=== PATIENT | male | born 1960 | race Caucasian/White ===

== ENCOUNTER 2017-06-02 01:58 | Inpatient (IN) | payer OTHER ==
[~2017-06-02] VITALS: Ht 203.2 cm; Wt 238.8 kg
[2017-06-02] MEDS ORDERED: MORPHINE SULFATE 4 MG/ML, 1ML ONE (02:49)
[2017-06-02] MEDS ORDERED: MORPHINE SULFATE 4 MG/ML, 1ML IVPush PRN (03:00)
[2017-06-02] MEDS ORDERED: PLEASE ENTER ALLERGIES MC SCH ×2 (03:00)
[2017-06-02] MEDS ORDERED: SODIUM CHLORIDE FLUSH 10ML SYR IVF ONE (03:00)
[2017-06-02] MEDS ORDERED: SODIUM CHLORIDE 0.9% 1,000ML IVBOLUS ONE (03:00)
[2017-06-02] MEDS ORDERED: CEFTAROLINE 600 MG in SODIUM CHLORIDE 0.9% 100 ML IV ONE (03:00)
[2017-06-02 03:17] LABS: PH, VENOUS 7.362 pH (7.320-7.420)
[2017-06-02 03:25] LABS: HEMATOCRIT 37.1 % (39.2-51.8); HEMOGLOBIN 12.1 g/dL (13.7-18.0); WHITE BLOOD COUNT 7.5 x10^3/uL (3.4-10)
[2017-06-02 03:30] LABS: ASPARTATE AMINO TRANSFERASE 25 U/L (15-37); BLOOD UREA NITROGEN 19 mg/dL (7-18)
[2017-06-02] MEDS ORDERED: CLON1TAB23 PO (03:45)
[2017-06-02] MEDS ORDERED: RISP1TAB3 PO (03:45)
[2017-06-02] MEDS ORDERED: LISI2.5T PO (03:45)
[2017-06-02] MEDS ORDERED: FURO-93 PO (03:45)
[2017-06-02] MEDS ORDERED: METOPROLOL 1 MG/ML, 5ML IVPush ONE (04:30)
[2017-06-02] MEDS ORDERED: METOPROLOL 1 MG/ML, 5ML ONE (04:36)
[2017-06-02] MEDS: SODIUM CHLORIDE 0.9% 1,000 ML IV SCH ×3 (05:36→23:38)
[2017-06-02] MEDS ORDERED: ONDANSETRON 2MG/ML, 2ML IVPush PRN (06:00)
[2017-06-02] MEDS ORDERED: TEMAZEPAM 15 MG CAPSULE PO PRN (06:00)
[2017-06-02] MEDS ORDERED: ACETAMINOPHEN 325 MG TABLET PO PRN (06:00)
[2017-06-02] MEDS ORDERED: LEVOFLOXACIN/PMX 500MG/100ML 100 ML IV SCH (06:00)
[2017-06-02] MEDS: ENOXAPARIN 40 MG/0.4 ML SQ SCH (06:00)
[2017-06-02] MEDS ORDERED: VANCOMYCIN PER PHARMACY MC PRN (06:00)
[2017-06-02] MEDS ORDERED: LEVOFLOXACIN/PMX 500MG/100ML 100 ML ONE (06:50)
[2017-06-02] MEDS ORDERED: ENOXAPARIN 40 MG/0.4 ML ONE (06:51)
[2017-06-02] MEDS: INSULIN ASPART 100 UNITS/ML, PEN SQ-INSULIN SCH ×4 (07:00→20:11)
[2017-06-02] MEDS ORDERED: PHARMACOKINETIC MONITORING MC PRN (10:30)
[2017-06-02] MEDS ORDERED: PHARMACOKINETIC CONSULTATION MC ONE (10:30)
[2017-06-02] MEDS: RISPERIDONE 1 MG TABLET PO SCH ×2 (10:34→20:11)
[2017-06-02] MEDS ORDERED: VANCOMYCIN 3,000 MG in SODIUM CHLORIDE 0.9% 500 ML IV SCH (11:00)
[2017-06-02 12:09] LABS: DAU SCREEN DISCLAIMER
[2017-06-02 13:07] VITALS: BP 96/56
[2017-06-02] MEDS: LEVOFLOXACIN/PMX 500MG/100ML 100 ML IV SCH (15:30)
[2017-06-02] MEDS: GABAPENTIN 100 MG CAPSULE PO SCH ×2 (15:33→20:11)
[2017-06-02] MEDS: OXYcodone IR 5MG TABLET PO PRN ×2 (16:07→20:11)
[2017-06-02 20:05] VITALS: BP 99/63
[2017-06-03 04:00] VITALS: BP 117/74
[2017-06-03 05:12] LABS: HEMATOCRIT 33.3 % (39.2-51.8); WHITE BLOOD COUNT 5.8 x10^3/uL (3.4-10)
[2017-06-03 05:30] LABS: BLOOD UREA NITROGEN 16 mg/dL (7-18)
[2017-06-03] MEDS: ENOXAPARIN 40 MG/0.4 ML SQ SCH (05:31)
[2017-06-03] MEDS: INSULIN ASPART 100 UNITS/ML, PEN SQ-INSULIN SCH ×4 (07:00→21:00)
[2017-06-03] MEDS: GABAPENTIN 100 MG CAPSULE PO SCH ×3 (08:54→22:42)
[2017-06-03] MEDS: RISPERIDONE 1 MG TABLET PO SCH ×2 (08:54→22:42)
[2017-06-03] MEDS: OXYcodone IR 5MG TABLET PO PRN ×2 (08:54→23:04)
[2017-06-03] MEDS: SODIUM CHLORIDE 0.9% 1,000 ML IV SCH (08:58)
[2017-06-03 10:00] VITALS: BP 103/62
[2017-06-03] MEDS: VANCOMYCIN 2,600 MG in SODIUM CHLORIDE 0.9% 500 ML IV SCH (11:31)
[2017-06-03 15:13] VITALS: BP 102/69
[2017-06-03] MEDS: LEVOFLOXACIN/PMX 500MG/100ML 100 ML IV SCH (15:13)
[2017-06-03 19:52] VITALS: BP 129/71
[2017-06-03 23:02] VITALS: BP 117/84
[2017-06-04 02:00] VITALS: BP 136/93
[2017-06-04 06:16] LABS: HEMATOCRIT 33.4 % (39.2-51.8); WHITE BLOOD COUNT 4.8 x10^3/uL (3.4-10)
[2017-06-04 06:30] LABS: BLOOD UREA NITROGEN 15 mg/dL (7-18)
[2017-06-04 06:41] VITALS: BP 134/103
[2017-06-04] MEDS: INSULIN ASPART 100 UNITS/ML, PEN SQ-INSULIN SCH ×4 (07:00→21:00)
[2017-06-04] MEDS: ENOXAPARIN 40 MG/0.4 ML SQ SCH (08:23)
[2017-06-04] MEDS: GABAPENTIN 100 MG CAPSULE PO SCH (08:23)
[2017-06-04] MEDS: RISPERIDONE 1 MG TABLET PO SCH ×2 (08:23→21:00)
[2017-06-04] MEDS: VANCOMYCIN 2,600 MG in SODIUM CHLORIDE 0.9% 500 ML IV SCH (11:07)
[2017-06-04 12:51] VITALS: BP 128/100
[2017-06-04] MEDS: LEVOFLOXACIN/PMX 500MG/100ML 100 ML IV SCH (15:34)
[2017-06-04] MEDS: GABAPENTIN 300 MG CAPSULE PO SCH ×2 (16:10→21:00)
[2017-06-04] MEDS: OXYcodone IR 5MG TABLET PO PRN (20:56)
[2017-06-04 21:11] VITALS: BP 156/107
[2017-06-04] MEDS: LISINOPRIL 5 MG TABLET PO SCH (21:30)
[2017-06-05 02:00] VITALS: BP 138/86
[2017-06-05 06:15] LABS: HEMATOCRIT 32.9 % (39.2-51.8); HEMOGLOBIN 10.9 g/dL (13.7-18.0); WHITE BLOOD COUNT 4.7 x10^3/uL (3.4-10)
[2017-06-05 06:19] LABS: BLOOD UREA NITROGEN 12 mg/dL (7-18)
[2017-06-05] MEDS: INSULIN ASPART 100 UNITS/ML, PEN SQ-INSULIN SCH ×4 (07:00→20:30)
[2017-06-05 08:14] VITALS: BP 142/89
[2017-06-05] MEDS: GABAPENTIN 300 MG CAPSULE PO SCH ×3 (09:12→20:29)
[2017-06-05] MEDS: RISPERIDONE 1 MG TABLET PO SCH ×2 (09:12→20:29)
[2017-06-05] MEDS: ENOXAPARIN 40 MG/0.4 ML SQ SCH (09:13)
[2017-06-05] MEDS: OXYcodone IR 5MG TABLET PO PRN (09:13)
[2017-06-05] MEDS: METOPROLOL SUCCINATE 25 MG TAB.ER.24H PO SCH (10:31)
[2017-06-05] MEDS: VANCOMYCIN 2,600 MG in SODIUM CHLORIDE 0.9% 500 ML IV SCH (11:43)
[2017-06-05 13:48] VITALS: BP 149/86
[2017-06-05 20:23] VITALS: BP 112/88
[2017-06-05] MEDS: LISINOPRIL 5 MG TABLET PO SCH (20:28)
[2017-06-05] MEDS: SULFAMETH./TRIMETHOPRIM DS 800MG/160MG TABLET PO SCH (20:28)
[2017-06-06 05:57] VITALS: BP 115/75
[2017-06-06] MEDS: METOPROLOL SUCCINATE 25 MG TAB.ER.24H PO SCH (05:57)
[2017-06-06] MEDS: GABAPENTIN 300 MG CAPSULE PO SCH ×2 (05:57→11:00)
[2017-06-06 06:05] LABS: HEMATOCRIT 33.5 % (39.2-51.8); HEMOGLOBIN 11.1 g/dL (13.7-18.0); WHITE BLOOD COUNT 4.9 x10^3/uL (3.4-10)
[2017-06-06 06:17] LABS: BLOOD UREA NITROGEN 16 mg/dL (7-18)
[2017-06-06] MEDS: INSULIN ASPART 100 UNITS/ML, PEN SQ-INSULIN SCH ×2 (07:00→11:00)
[2017-06-06 08:00] VITALS: BP 115/75
[2017-06-06] MEDS: SULFAMETH./TRIMETHOPRIM DS 800MG/160MG TABLET PO SCH (09:18)
[2017-06-06] MEDS: LISINOPRIL 5 MG TABLET PO SCH (09:18)
[2017-06-06] MEDS: RISPERIDONE 1 MG TABLET PO SCH (09:18)
[2017-06-06] MEDS: ENOXAPARIN 40 MG/0.4 ML SQ SCH (09:19)
[2017-06-06] MEDS ORDERED: FUROSEMIDE 40 MG/4 ML IV ONE (11:00)
[2017-06-06] MEDS ORDERED: SULF1TAB24 PO (13:44)
[2017-06-07] MEDS ORDERED: METOPROLOL SUCCINATE 25 MG TAB.ER.24H PO SCH (06:00)
== END 2017-06-06 14:28 | disposition left against medical advice (07) | DRG 638 ==
LOC: ED 04:37 → EDIP 04:40 → 5SO 09:56 → 4WST 06-03 22:00
PROVIDERS: ADMIT Internal Medicine; ATTEND Internal Medicine
DX: E11.621 Type 2 diabetes mellitus with foot ulcer (principal); L03.115 Cellulitis of right lower limb; E44.0 Moderate protein-calorie malnutrition; J96.10 Chronic respiratory failure, unspecified whether with hypoxia or hypercapnia; L03.116 Cellulitis of left lower limb; Z68.43 Body mass index [BMI] 50.0-59.9, adult; N17.9 Acute kidney failure, unspecified; E11.622 Type 2 diabetes mellitus with other skin ulcer; L98.499 Non-pressure chronic ulcer of skin of other sites with unspecified severity; E66.01 Morbid (severe) obesity due to excess calories; R00.0 Tachycardia, unspecified; I11.0 Hypertensive heart disease with heart failure; I50.9 Heart failure, unspecified; F31.9 Bipolar disorder, unspecified; G40.909 Epilepsy, unspecified, not intractable, without status epilepticus; J44.9 Chronic obstructive pulmonary disease, unspecified; Z79.84 Long term (current) use of oral hypoglycemic drugs; Z79.899 Other long term (current) drug therapy; Z99.81 Dependence on supplemental oxygen; Z88.0 Allergy status to penicillin
CPT/HCPCS: 36415; 80048; 80053; 80307; 81003; 82010; 82803; 82962; 83605; 83735; 84100; 84145; 84443; 85025; 85610; 85730; 87040; 93005; 93970; 96361; 96374; 96375; C8929; J0712; J1650; J1815; J1956; J3370; J7030; J7040

== ENCOUNTER 2017-11-18 15:44 | Inpatient (IN) | payer MEDICAID, OTHER ==
[~2017-11-18] VITALS: Ht 203.2 cm; Wt 201.6 kg
[~2017-11-18 15:44] MED LIST: CLON1TAB23 PO; FURO-93 PO; LISI2.5T PO; RISP1TAB3 PO; SULF1TAB24 PO
[2017-11-18 16:19] LABS: BASOPHILS # (AUTO) 0.03 x10^3/uL (0-0.1); BASOPHILS % (AUTO) 0 % (0-1); EOSINOPHILS # (AUTO) 0.13 x10^3/uL (0-0.4); EOSINOPHILS % (AUTO) 2 % (1-7); LYMPHOCYTES # (AUTO) 1.72 x10^3/uL (1-3.4); LYMPHOCYTES % (AUTO) 25 % (22-44); MD NO; MEAN CORPUSCULAR HEMOGLOBIN 31.8 pg (27.5-34.5); MEAN CORPUSCULAR HGB CONC 33.6 g/dL (33.2-36.2); MEAN CORPUSCULAR VOLUME 94.6 fL (81-97); MEAN PLATELET VOLUME 8.7 fL (7.4-10.4); MONOCYTES # (AUTO) 0.57 x10^3/uL (0.2-0.8); MONOCYTES % (AUTO) 8 % (2-9); NEUTROPHILS # (AUTO) 4.38 x10^3/uL (1.8-6.8); NEUTROPHILS % (AUTO) 64 % (42-75); PLATELET COUNT 211 x10^3/uL (130-400); RED BLOOD COUNT 4.36 x10^6/uL (4.38-5.82)
[2017-11-18] MEDS ORDERED: HEPARIN 25,000 UNITS/500ML PMX 500 ML ONE (16:20)
[2017-11-18] MEDS ORDERED: HEPARIN 5,000 UNITS/ML, 1ML ONE (16:20)
[2017-11-18 16:24] LABS: INTERNATIONAL NORMALIZED RATIO 1.07 (0.93-1.1); PROTHROMBIN TIME 11.1 Seconds (9.6-11.5)
[2017-11-18 16:29] LABS: ALANINE AMINOTRANSFERASE 17 U/L (12-78); ALBUMIN 3.1 g/dL (3.4-5.0); ANION GAP 10 mmol/L (5-15); CALCIUM 8.1 mg/dL (8.5-10.1); CHLORIDE 108 mmol/L (98-107); CREATININE 1.14 mg/dL (0.7-1.3)
[2017-11-18] MEDS ORDERED: SODIUM CHLORIDE 0.9% 1,000ML IVBOLUS ONE (16:30)
[2017-11-18] MEDS ORDERED: HEPARIN 25,000 UNITS/500ML PMX 500 ML IV PRN (16:30)
[2017-11-18] MEDS ORDERED: HEPARIN 5,000 UNITS/ML, 1ML IV PRN (16:30)
[2017-11-18] MEDS ORDERED: HEPARIN 5,000 UNITS/ML, 1ML IV ONE ×2 (16:30→22:30)
[2017-11-18 16:34] LABS: ALKALINE PHOSPHATASE 83 U/L (45-117); T4 (THYROXINE) 5.4 mcg/dL (4.5-12.1); TOTAL PROTEIN 7.3 g/dL (6.4-8.2); TROPONIN I < 0.015 ng/mL (0.000-0.045)
[2017-11-18] MEDS ORDERED: OMNIPAQUE 350 MG/ML, 150 ML BOTTLE ONE (18:09)
[2017-11-18] MEDS ORDERED: DILTIAZEM 125 MG in DEXTROSE 5% 100 ML IV SCH (18:25)
[2017-11-18] MEDS ORDERED: WARF5TAB PO (18:26)
[2017-11-18] MEDS ORDERED: METO50TA82 PO (18:26)
[2017-11-18] MEDS ORDERED: GABA100C PO (18:26)
[2017-11-18] MEDS ORDERED: SPIR25TA3 PO (18:26)
[2017-11-18] MEDS ORDERED: TORS20TA PO (18:26)
[2017-11-18] MEDS ORDERED: ASPI-515 PO (18:26)
[2017-11-18] MEDS ORDERED: LISI-167 PO (18:26)
[2017-11-18] MEDS ORDERED: FLUO20CA19 PO (18:26)
[2017-11-18] MEDS ORDERED: NS + 20MEQ KCL 1,000 ML IV SCH (19:20)
[2017-11-18] MEDS ORDERED: ONDANSETRON 2MG/ML, 2ML IVPush PRN (19:30)
[2017-11-18] MEDS ORDERED: morphine SULFATE 10 MG/ML, 1ML IVPush PRN (19:30)
[2017-11-18] MEDS ORDERED: DILTIAZEM 125 MG in SODIUM CHLORIDE 0.9% 100 ML IV PRN (19:30)
[2017-11-18] MEDS ORDERED: POLYETHYLENE GLYCOL 17 GM PACKET PO PRN (19:30)
[2017-11-18] MEDS ORDERED: ACETAMINOPHEN 325 MG TABLET PO PRN (19:30)
[2017-11-18] MEDS ORDERED: DOCUSATE 100 MG CAPSULE PO PRN (19:30)
[2017-11-18] MEDS: INSULIN LISPRO 100 UNITS/ML, PEN SQ-INSULIN SCH (21:00)
[2017-11-18] MEDS: TORSEMIDE 20 MG TABLET PO SCH (21:00)
[2017-11-18] MEDS: METOPROLOL TARTRATE 50 MG TABLET PO SCH (22:26)
[2017-11-18] MEDS: RISPERIDONE 1 MG TABLET PO SCH (22:26)
[2017-11-18] MEDS: GABAPENTIN 100 MG CAPSULE PO SCH (22:27)
[2017-11-19 01:30] VITALS: BP 93/57
[2017-11-19] MEDS: HEPARIN 5,000 UNITS/ML, 1ML IV PRN ×4 (01:41→21:49)
[2017-11-19 05:33] LABS: CHLORIDE 110 mmol/L (98-107)
[2017-11-19 05:47] LABS: ANION GAP 5 mmol/L (5-15); CALCIUM 8.3 mg/dL (8.5-10.1); CHOL/HDL RATIO 2.5; CHOLESTEROL, TOTAL 155 mg/dL (140-239); CREATININE 1.04 mg/dL (0.7-1.3); HDL CHOL % 41 % (26-37); HDL CHOLESTEROL (DIRECT) 63 mg/dL (40-60); LDL CHOLESTEROL,CALCULATED 84 mg/dL (54-169); LDL/HDL RATIO 1.3 (0.5-3.0); TRIGLYCERIDES 39 mg/dL (50-200); TROPONIN I < 0.015 ng/mL (0.000-0.045); VLDL CHOLESTEROL 8 mg/dL (0-25)
[2017-11-19 06:50] VITALS: BP 103/52
[2017-11-19] MEDS: INSULIN LISPRO 100 UNITS/ML, PEN SQ-INSULIN SCH ×4 (07:06→20:49)
[2017-11-19] MEDS: HYDROcodone/APAP 5/325 TABLET PO PRN ×2 (07:47→16:14)
[2017-11-19] MEDS ORDERED: SPIRONOLACTONE 25 MG TABLET PO SCH (09:00)
[2017-11-19] MEDS: TORSEMIDE 20 MG TABLET PO SCH (09:21)
[2017-11-19] MEDS: ASPIRIN 81 MG TABLET EC PO SCH (09:22)
[2017-11-19] MEDS: GABAPENTIN 100 MG CAPSULE PO SCH ×3 (09:23→21:44)
[2017-11-19] MEDS: FLUOXETINE 20 MG CAPSULE PO SCH (09:23)
[2017-11-19] MEDS: METOPROLOL TARTRATE 50 MG TABLET PO SCH (09:23)
[2017-11-19] MEDS: LISINOPRIL 10 MG TABLET PO SCH (09:23)
[2017-11-19] MEDS: SENNA/DOCUSATE TABLET PO SCH (09:24)
[2017-11-19] MEDS: RISPERIDONE 1 MG TABLET PO SCH ×2 (09:27→21:44)
[2017-11-19 11:14] LABS: HEMOGLOBIN A1C 5.8 % (4.2-6.3)
[2017-11-19] MEDS ORDERED: DIVA250T14 PO (11:38)
[2017-11-19] MEDS ORDERED: TAMS-11 PO (11:38)
[2017-11-19] MEDS ORDERED: RIVA15TA PO (11:38)
[2017-11-19] MEDS ORDERED: FURO20TA3 PO (11:38)
[2017-11-19] MEDS ORDERED: METO-95 PO (11:38)
[2017-11-19 11:45] LABS: INTERNATIONAL NORMALIZED RATIO 1.04 (0.93-1.1); PROTHROMBIN TIME 10.8 Seconds (9.6-11.5)
[2017-11-19 12:47] VITALS: BP 116/76
[2017-11-19] MEDS: DIVALPROEX 250 MG TABLET.DR PO SCH ×2 (16:13→21:44)
[2017-11-19 20:07] VITALS: BP 97/65
[2017-11-19] MEDS ORDERED: RIVAROXABAN 15 MG TABLET PO SCH (21:00)
[2017-11-19] MEDS: HEPARIN 25,000 UNITS/500ML PMX 500 ML IV PRN (21:51)
[2017-11-20 01:36] VITALS: BP 119/80
[2017-11-20 04:43] LABS: ANION GAP 7 mmol/L (5-15); CALCIUM 8.1 mg/dL (8.5-10.1); CHLORIDE 108 mmol/L (98-107); CREATININE 0.99 mg/dL (0.7-1.3)
[2017-11-20 05:05] LABS: BASOPHILS # (AUTO) 0.01 x10^3/uL (0-0.1); BASOPHILS % (AUTO) 0 % (0-1); EOSINOPHILS # (AUTO) 0.17 x10^3/uL (0-0.4); EOSINOPHILS % (AUTO) 3 % (1-7); LYMPHOCYTES # (AUTO) 1.92 x10^3/uL (1-3.4); LYMPHOCYTES % (AUTO) 38 % (22-44); MD NO; MEAN CORPUSCULAR HEMOGLOBIN 32.1 pg (27.5-34.5); MEAN CORPUSCULAR HGB CONC 33.6 g/dL (33.2-36.2); MEAN CORPUSCULAR VOLUME 95.4 fL (81-97); MEAN PLATELET VOLUME 8.4 fL (7.4-10.4); MONOCYTES # (AUTO) 0.39 x10^3/uL (0.2-0.8); MONOCYTES % (AUTO) 8 % (2-9); NEUTROPHILS # (AUTO) 2.59 x10^3/uL (1.8-6.8); NEUTROPHILS % (AUTO) 51 % (42-75); PLATELET COUNT 167 x10^3/uL (130-400); RED BLOOD COUNT 4.13 x10^6/uL (4.38-5.82); RED CELL DISTRIBUTION WIDTH 15.4 % (9.4-14.8)
[2017-11-20 05:12] LABS: INTERNATIONAL NORMALIZED RATIO 1.08 (0.93-1.1); PROTHROMBIN TIME 11.2 Seconds (9.6-11.5)
[2017-11-20] MEDS: INSULIN LISPRO 100 UNITS/ML, PEN SQ-INSULIN SCH ×4 (07:00→20:58)
[2017-11-20] MEDS ORDERED: DEXTROSE 50%, 50ML SYRINGE IVPush ONE (08:00)
[2017-11-20] MEDS ORDERED: INSULIN REGULAR 100 UNITS/ML, 3ML VIAL IVPush ONE (08:00)
[2017-11-20] MEDS ORDERED: SODIUM BICARB 8.4%, 50ML SYRINGE IVPush SCH (08:00)
[2017-11-20] MEDS ORDERED: SODIUM POLYSTYRENE SULFONATE ORAL SUSP PO ONE (08:00)
[2017-11-20] MEDS: ASPIRIN 81 MG TABLET EC PO SCH (09:00)
[2017-11-20] MEDS: SENNA/DOCUSATE TABLET PO SCH (09:00)
[2017-11-20] MEDS ORDERED: RISPERIDONE 0.5 MG TABLET ONE (10:42)
[2017-11-20] MEDS: LISINOPRIL 10 MG TABLET PO SCH (10:47)
[2017-11-20] MEDS: FUROSEMIDE 20 MG TABLET PO SCH (10:48)
[2017-11-20] MEDS: TAMSULOSIN 0.4 MG CAP.ER.24H PO SCH (10:48)
[2017-11-20] MEDS: RISPERIDONE 1 MG TABLET PO SCH ×2 (10:48→20:46)
[2017-11-20] MEDS: GABAPENTIN 100 MG CAPSULE PO SCH ×3 (10:48→20:46)
[2017-11-20] MEDS: METOPROLOL SUCCINATE 100 MG TAB.ER.24H PO SCH (10:49)
[2017-11-20] MEDS: DIVALPROEX 250 MG TABLET.DR PO SCH ×3 (10:58→20:45)
[2017-11-20] MEDS: HEPARIN 25,000 UNITS/500ML PMX 500 ML IV PRN (10:58)
[2017-11-20] MEDS: FLUOXETINE 20 MG CAPSULE PO SCH (10:58)
[2017-11-20] MEDS ORDERED: REGADENOSON 0.4 MG/5 ML SYRINGE ONE (12:10)
[2017-11-20 14:23] VITALS: BP 99/66
[2017-11-20 16:10] LABS: ANION GAP 9 mmol/L (5-15); CALCIUM 8.5 mg/dL (8.5-10.1); CHLORIDE 106 mmol/L (98-107); CREATININE 1.03 mg/dL (0.7-1.3)
[2017-11-20] MEDS: HYDROcodone/APAP 5/325 TABLET PO PRN (16:15)
[2017-11-20] MEDS: RIVAROXABAN 20 MG TABLET PO SCH ×2 (17:10→23:24)
[2017-11-20 18:43] VITALS: BP 86/53
[2017-11-20] MEDS: ATORVASTATIN 10 MG TABLET PO SCH (20:45)
[2017-11-21 04:00] VITALS: BP 105/69
[2017-11-21 05:49] LABS: INTERNATIONAL NORMALIZED RATIO 1.14 (0.93-1.1); PROTHROMBIN TIME 11.8 Seconds (9.6-11.5)
[2017-11-21 05:55] LABS: ANION GAP 8 mmol/L (5-15); CALCIUM 8.2 mg/dL (8.5-10.1); CHLORIDE 107 mmol/L (98-107)
[2017-11-21 05:58] LABS: CREATININE 1.01 mg/dL (0.7-1.3)
[2017-11-21] MEDS: ASPIRIN 81 MG TABLET EC PO SCH (06:00)
[2017-11-21] MEDS: GABAPENTIN 100 MG CAPSULE PO SCH ×3 (08:17→20:01)
[2017-11-21] MEDS: DIVALPROEX 250 MG TABLET.DR PO SCH ×3 (08:18→23:22)
[2017-11-21] MEDS: FLUOXETINE 20 MG CAPSULE PO SCH (08:18)
[2017-11-21] MEDS: INSULIN LISPRO 100 UNITS/ML, PEN SQ-INSULIN SCH ×4 (08:18→20:02)
[2017-11-21] MEDS: RISPERIDONE 1 MG TABLET PO SCH ×2 (08:18→20:00)
[2017-11-21] MEDS: TAMSULOSIN 0.4 MG CAP.ER.24H PO SCH (08:18)
[2017-11-21] MEDS: SENNA/DOCUSATE TABLET PO SCH (08:18)
[2017-11-21 08:44] VITALS: BP 94/66
[2017-11-21] MEDS: HYDROcodone/APAP 5/325 TABLET PO PRN ×3 (09:02→18:29)
[2017-11-21 10:40] VITALS: BP 107/68
[2017-11-21] MEDS: METOPROLOL SUCCINATE 100 MG TAB.ER.24H PO SCH (10:42)
[2017-11-21] MEDS: FUROSEMIDE 20 MG TABLET PO SCH ×2 (10:42→10:44)
[2017-11-21 13:08] VITALS: BP 94/61
[2017-11-21] MEDS ORDERED: RISPERIDONE 0.5 MG TABLET ONE (19:51)
[2017-11-21 19:58] VITALS: BP 109/66
[2017-11-21] MEDS: ATORVASTATIN 10 MG TABLET PO SCH (20:01)
[2017-11-22 02:35] VITALS: BP 103/69
[2017-11-22] MEDS: ASPIRIN 81 MG TABLET EC PO SCH (06:12)
[2017-11-22 06:29] LABS: CHLORIDE 106 mmol/L (98-107)
[2017-11-22 06:32] LABS: ANION GAP 7 mmol/L (5-15); CALCIUM 8.4 mg/dL (8.5-10.1)
[2017-11-22] MEDS: INSULIN LISPRO 100 UNITS/ML, PEN SQ-INSULIN SCH ×4 (07:00→21:57)
[2017-11-22 07:51] LABS: INTERNATIONAL NORMALIZED RATIO 1.05 (0.93-1.1); PROTHROMBIN TIME 10.9 Seconds (9.6-11.5)
[2017-11-22 07:55] VITALS: BP 109/67
[2017-11-22] MEDS: SENNA/DOCUSATE TABLET PO SCH (09:00)
[2017-11-22] MEDS: FUROSEMIDE 20 MG TABLET PO SCH (09:00)
[2017-11-22] MEDS: GABAPENTIN 100 MG CAPSULE PO SCH ×3 (09:00→21:53)
[2017-11-22] MEDS: METOPROLOL SUCCINATE 100 MG TAB.ER.24H PO SCH (09:00)
[2017-11-22] MEDS ORDERED: TICAGRELOR 90 MG TABLET ONE (10:35)
[2017-11-22] MEDS ORDERED: LIDOCAINE 2%, 20ML ONE (10:35)
[2017-11-22] MEDS ORDERED: BIVALIRUDIN 250 MG ONE ×2 (10:35→10:48)
[2017-11-22] MEDS ORDERED: FENTANYL PF 100 MCG/2ML ONE (10:35)
[2017-11-22] MEDS ORDERED: VERAPAMIL 2.5 MG/ML, 2ML ONE (10:35)
[2017-11-22] MEDS ORDERED: HEPARIN 1,000 UNITS/ML, 10ML ONE (10:36)
[2017-11-22] MEDS ORDERED: MIDAZOLAM 1 MG/ML, 2ML ONE (10:36)
[2017-11-22 12:41] VITALS: BP 105/67
[2017-11-22] MEDS: HYDROcodone/APAP 5/325 TABLET PO PRN ×2 (13:43→21:57)
[2017-11-22] MEDS: FLUOXETINE 20 MG CAPSULE PO SCH (13:43)
[2017-11-22] MEDS: DIVALPROEX 250 MG TABLET.DR PO SCH ×3 (13:43→22:49)
[2017-11-22] MEDS: TAMSULOSIN 0.4 MG CAP.ER.24H PO SCH (13:43)
[2017-11-22] MEDS: RISPERIDONE 1 MG TABLET PO SCH ×2 (13:44→21:53)
[2017-11-22 21:52] VITALS: BP 99/56
[2017-11-22] MEDS: ATORVASTATIN 10 MG TABLET PO SCH (21:53)
[2017-11-23 04:23] VITALS: BP 89/62
[2017-11-23] MEDS: ASPIRIN 81 MG TABLET EC PO SCH (05:40)
[2017-11-23 05:49] LABS: INTERNATIONAL NORMALIZED RATIO 1.06 (0.93-1.1)
[2017-11-23] MEDS ORDERED: RISPERIDONE 0.5 MG TABLET ONE (07:28)
[2017-11-23] MEDS: INSULIN LISPRO 100 UNITS/ML, PEN SQ-INSULIN SCH ×2 (07:42→11:00)
[2017-11-23] MEDS: DIVALPROEX 250 MG TABLET.DR PO SCH (07:43)
[2017-11-23] MEDS: SENNA/DOCUSATE TABLET PO SCH (07:43)
[2017-11-23] MEDS: TAMSULOSIN 0.4 MG CAP.ER.24H PO SCH (07:43)
[2017-11-23] MEDS: HYDROcodone/APAP 5/325 TABLET PO PRN (07:43)
[2017-11-23] MEDS: GABAPENTIN 100 MG CAPSULE PO SCH (07:43)
[2017-11-23] MEDS: FLUOXETINE 20 MG CAPSULE PO SCH (07:43)
[2017-11-23] MEDS: RISPERIDONE 1 MG TABLET PO SCH (07:44)
[2017-11-23] MEDS: FUROSEMIDE 20 MG TABLET PO SCH (07:47)
[2017-11-23 08:00] VITALS: BP 89/62
[2017-11-23] MEDS ORDERED: LISINOPRIL 5 MG TABLET PO SCH (09:00)
[2017-11-23] MEDS ORDERED: LISI5TAB7 PO (11:52)
[2017-11-23] MEDS ORDERED: RIVA20TA PO (11:52)
[2017-11-23] MEDS ORDERED: GABA-826 PO (11:52)
[2017-11-23] MEDS ORDERED: FURO20TA3 PO (11:52)
[2017-11-23] MEDS ORDERED: TAMS-11 PO (11:54)
[2017-11-23] MEDS ORDERED: RISP1TAB3 PO (11:54)
[2017-11-23] MEDS ORDERED: DIVA250T14 PO (11:54)
[2017-11-23] MEDS ORDERED: METO-95 PO (11:54)
[2017-11-23] MEDS ORDERED: RIVAROXABAN 20 MG TABLET ONE (12:05)
[2017-11-23] MEDS ORDERED: RIVAROXABAN 20 MG TABLET PO SCH (17:00)
[2017-11-23] MEDS ORDERED: METOPROLOL SUCCINATE 100 MG TAB.ER.24H PO SCH (21:00)
== END 2017-11-23 13:55 | disposition home or self-care (01) | DRG 281 ==
LOC: ED 18:11 → SUATTDRO 19:01 → EDIP 19:05 → 5SO 20:34
PROVIDERS: ADMIT Family Medicine; ATTEND Family Medicine
PROC: 4A023N7 Measurement of Cardiac Sampling and Pressure, Left Heart, Percutaneous Approach (ICD-10-PCS; principal; 2017-11-22)
PROC: B2151ZZ Fluoroscopy of Left Heart using Low Osmolar Contrast (ICD-10-PCS; 2017-11-22)
PROC: B2111ZZ Fluoroscopy of Multiple Coronary Arteries using Low Osmolar Contrast (ICD-10-PCS; 2017-11-22)
DX: I21.09 ST elevation (STEMI) myocardial infarction involving other coronary artery of anterior wall (principal); D68.69 Other thrombophilia; I50.22 Chronic systolic (congestive) heart failure; E66.01 Morbid (severe) obesity due to excess calories; E87.5 Hyperkalemia; I48.92 Unspecified atrial flutter; I48.91 Unspecified atrial fibrillation; Z68.42 Body mass index [BMI] 45.0-49.9, adult; E11.9 Type 2 diabetes mellitus without complications; F32.9 Major depressive disorder, single episode, unspecified; F41.9 Anxiety disorder, unspecified; I25.5 Ischemic cardiomyopathy; G47.33 Obstructive sleep apnea (adult) (pediatric); J44.9 Chronic obstructive pulmonary disease, unspecified; Z79.01 Long term (current) use of anticoagulants; Z82.49 Family history of ischemic heart disease and other diseases of the circulatory system; Z83.3 Family history of diabetes mellitus; Z86.711 Personal history of pulmonary embolism; Z86.718 Personal history of other venous thrombosis and embolism; Z87.891 Personal history of nicotine dependence; Z91.14 Patient's other noncompliance with medication regimen; Z91.19 Patient's noncompliance with other medical treatment and regimen; Z88.0 Allergy status to penicillin; Z79.899 Other long term (current) drug therapy
CPT/HCPCS: 36415; 71045; 71275; 78452; 80048; 80053; 80061; 82962; 83036; 83735; 83880; 84436; 84443; 84484; 85025; 85520; 85610; 85730; 93005; 93017; 93458; 93970; 96361; 96365; 96366; 96375; 99156; C1769; C1894; C8929; J0583; J1644; J2250; J2785; J3010; J3480; J3490; Q9967; A9502; C9898; J1815; J7030

== ENCOUNTER 2017-12-11 06:07 | Emergency (ER) | payer MEDICAID ==
[~2017-12-11] VITALS: Ht 203.2 cm; Wt 202.0 kg
[2017-12-11 06:07] VITALS: BP 155/106
[~2017-12-11 06:07] MED LIST changes: +ASPI-515 PO; +DIVA250T14 PO; +FLUO20CA19 PO; +FURO20TA3 PO; +GABA-826 PO; +GABA100C PO; +LISI-167 PO; +LISI5TAB7 PO; +METO-95 PO; +METO50TA82 PO; +RIVA15TA PO; +RIVA20TA PO; +SPIR25TA3 PO; +TAMS-11 PO; +TORS20TA PO; +WARF5TAB PO
[2017-12-11 06:44] LABS: BASOPHILS # (AUTO) 0.02 x10^3/uL (0-0.1); BASOPHILS % (AUTO) 1 % (0-1); EOSINOPHILS % (AUTO) 2 % (1-7); LYMPHOCYTES # (AUTO) 1.03 x10^3/uL (1-3.4); LYMPHOCYTES % (AUTO) 26 % (22-44); MD NO; MEAN CORPUSCULAR HGB CONC 33.8 g/dL (33.2-36.2); MEAN CORPUSCULAR VOLUME 94.5 fL (81-97); MEAN PLATELET VOLUME 7.9 fL (7.4-10.4); MONOCYTES # (AUTO) 0.33 x10^3/uL (0.2-0.8); MONOCYTES % (AUTO) 9 % (2-9); NEUTROPHILS # (AUTO) 2.47 x10^3/uL (1.8-6.8); NEUTROPHILS % (AUTO) 63 % (42-75); PLATELET COUNT 130 x10^3/uL (130-400); RED BLOOD COUNT 3.38 x10^6/uL (4.38-5.82); RED CELL DISTRIBUTION WIDTH 15.3 % (9.4-14.8)
[2017-12-11 06:57] LABS: ALBUMIN 2.8 g/dL (3.4-5.0); ANION GAP 5 mmol/L (5-15); CALCIUM 7.8 mg/dL (8.5-10.1); CHLORIDE 113 mmol/L (98-107); CREATININE 0.92 mg/dL (0.7-1.3)
[2017-12-11 07:00] LABS: TROPONIN I 0.016 ng/mL (0.000-0.045)
[2017-12-11] MEDS ORDERED: METOPROLOL TARTRATE 50 MG TABLET PO ONE (07:30)
== END 2017-12-11 07:37 | disposition left against medical advice (07) ==
LOC: ED 07:16
DX: R00.0 Tachycardia, unspecified (principal); E11.9 Type 2 diabetes mellitus without complications; Z86.711 Personal history of pulmonary embolism
CPT/HCPCS: 36415; 71045; 80048; 82040; 83880; 84484; 85025; 93005; 99285

== ENCOUNTER 2017-12-16 01:31 | Inpatient (IN) | payer MEDICAID ==
[~2017-12-16] VITALS: Ht 203.2 cm; Wt 226.6 kg
[2017-12-16] MEDS ORDERED: SODIUM CHLORIDE FLUSH 10ML SYR IVF ONE (02:00)
[2017-12-16 02:13] LABS: BASOPHILS # (AUTO) 0.01 x10^3/uL (0-0.1); BASOPHILS % (AUTO) 0 % (0-1); EOSINOPHILS # (AUTO) 0.03 x10^3/uL (0-0.4); EOSINOPHILS % (AUTO) 1 % (1-7); LYMPHOCYTES # (AUTO) 0.57 x10^3/uL (1-3.4); LYMPHOCYTES % (AUTO) 11 % (22-44); MD NO; MEAN CORPUSCULAR HEMOGLOBIN 31.2 pg (27.5-34.5); MEAN CORPUSCULAR VOLUME 94.6 fL (81-97); MEAN PLATELET VOLUME 7.9 fL (7.4-10.4); MONOCYTES % (AUTO) 8 % (2-9); NEUTROPHILS # (AUTO) 3.98 x10^3/uL (1.8-6.8); NEUTROPHILS % (AUTO) 80 % (42-75); PLATELET COUNT 149 x10^3/uL (130-400); RED BLOOD COUNT 3.67 x10^6/uL (4.38-5.82); RED CELL DISTRIBUTION WIDTH 14.9 % (9.4-14.8)
[2017-12-16 02:19] LABS: INTERNATIONAL NORMALIZED RATIO 1.2 (0.93-1.1); PROTHROMBIN TIME 12.3 Seconds (9.6-11.5)
[2017-12-16 02:21] LABS: ALANINE AMINOTRANSFERASE 11 U/L (12-78); ALBUMIN 2.9 g/dL (3.4-5.0); ANION GAP 9 mmol/L (5-15); CALCIUM 7.8 mg/dL (8.5-10.1); CHLORIDE 107 mmol/L (98-107); CREATININE 1.18 mg/dL (0.7-1.3)
[2017-12-16 02:26] LABS: ALKALINE PHOSPHATASE 79 U/L (45-117); BILIRUBIN,TOTAL 1.5 mg/dL (0.2-1.0); TOTAL PROTEIN 6.7 g/dL (6.4-8.2); TROPONIN I < 0.015 ng/mL (0.000-0.045)
[2017-12-16] MEDS ORDERED: FUROSEMIDE 40 MG/4 ML IV ONE (03:00)
[2017-12-16] MEDS ORDERED: FUROSEMIDE 40 MG/4 ML ONE (03:04)
[2017-12-16] MEDS ORDERED: MORPHINE SULFATE 4 MG/ML, 1ML ONE (03:04)
[2017-12-16] MEDS: MORPHINE SULFATE 4 MG/ML, 1ML IVPush PRN ×3 (03:19→07:42)
[2017-12-16] MEDS ORDERED: FUROSEMIDE 20 MG/2 ML ONE (03:21)
[2017-12-16] MEDS ORDERED: ONDANSETRON 2MG/ML, 2ML IVPush PRN (04:00)
[2017-12-16] MEDS ORDERED: LABETALOL 5MG/ML, 20ML IVPush PRN (04:00)
[2017-12-16] MEDS ORDERED: ONDANSETRON ODT 4 MG PO PRN (04:00)
[2017-12-16] MEDS ORDERED: morphine SULFATE 10 MG/ML, 1ML IVPush PRN (04:00)
[2017-12-16] MEDS ORDERED: ACETAMINOPHEN 325 MG TABLET PO PRN (04:00)
[2017-12-16 04:57] LABS: TROPONIN I < 0.015 ng/mL (0.000-0.045)
[2017-12-16 05:18] LABS: HEMOGLOBIN A1C 5.5 % (4.2-6.3)
[2017-12-16] MEDS ORDERED: ONDANSETRON 2MG/ML, 2ML ONE (05:30)
[2017-12-16 06:30] VITALS: BP 111/74
[2017-12-16 07:45] VITALS: BP 90/54
[2017-12-16] MEDS: GABAPENTIN 100 MG CAPSULE PO SCH ×3 (08:45→20:48)
[2017-12-16] MEDS: RISPERIDONE 1 MG TABLET PO SCH (08:46)
[2017-12-16] MEDS: METOPROLOL SUCCINATE 100 MG TAB.ER.24H PO SCH (08:47)
[2017-12-16] MEDS: TAMSULOSIN 0.4 MG CAP.ER.24H PO SCH (08:47)
[2017-12-16] MEDS: LISINOPRIL 5 MG TABLET PO SCH (08:47)
[2017-12-16] MEDS: POTASSIUM CHLORIDE 20 MEQ TAB.ER.PRT PO SCH ×2 (08:47→16:36)
[2017-12-16] MEDS: DIVALPROEX 250 MG TAB.ER.24H PO SCH ×3 (08:47→20:48)
[2017-12-16] MEDS: FUROSEMIDE 40 MG/4 ML IV SCH (08:47)
[2017-12-16 09:01] VITALS: BP 111/76
[2017-12-16 10:25] LABS: TROPONIN I < 0.015 ng/mL (0.000-0.045)
[2017-12-16 12:50] VITALS: BP 98/61
[2017-12-16 13:00] VITALS: BP 144/81
[2017-12-16] MEDS: RIVAROXABAN 20 MG TABLET PO SCH (16:36)
[2017-12-16 18:55] VITALS: BP 103/63
[2017-12-16] MEDS: TEMAZEPAM 15 MG CAPSULE PO PRN (20:49)
[2017-12-17 03:40] VITALS: BP 108/64
[2017-12-17 05:14] LABS: BASOPHILS # (AUTO) 0.01 x10^3/uL (0-0.1); BASOPHILS % (AUTO) 0 % (0-1); EOSINOPHILS # (AUTO) 0.09 x10^3/uL (0-0.4); EOSINOPHILS % (AUTO) 3 % (1-7); LYMPHOCYTES # (AUTO) 1.18 x10^3/uL (1-3.4); LYMPHOCYTES % (AUTO) 32 % (22-44); MD NO; MEAN CORPUSCULAR HEMOGLOBIN 32.1 pg (27.5-34.5); MEAN CORPUSCULAR HGB CONC 33.6 g/dL (33.2-36.2); MEAN CORPUSCULAR VOLUME 95.3 fL (81-97); MEAN PLATELET VOLUME 8.3 fL (7.4-10.4); MONOCYTES # (AUTO) 0.36 x10^3/uL (0.2-0.8); MONOCYTES % (AUTO) 10 % (2-9); NEUTROPHILS # (AUTO) 2.01 x10^3/uL (1.8-6.8); NEUTROPHILS % (AUTO) 55 % (42-75); PLATELET COUNT 146 x10^3/uL (130-400); RED BLOOD COUNT 3.55 x10^6/uL (4.38-5.82); RED CELL DISTRIBUTION WIDTH 15.8 % (9.4-14.8)
[2017-12-17 05:20] LABS: CHLORIDE 103 mmol/L (98-107)
[2017-12-17 05:42] LABS: ALANINE AMINOTRANSFERASE 11 U/L (12-78); ALBUMIN 2.6 g/dL (3.4-5.0); ALKALINE PHOSPHATASE 76 U/L (45-117); ANION GAP 5 mmol/L (5-15); BILIRUBIN,TOTAL 1.1 mg/dL (0.2-1.0); CALCIUM 7.8 mg/dL (8.5-10.1); TOTAL PROTEIN 6.4 g/dL (6.4-8.2)
[2017-12-17 08:20] VITALS: BP 100/59
[2017-12-17] MEDS: LISINOPRIL 5 MG TABLET PO SCH (09:10)
[2017-12-17] MEDS: DIVALPROEX 250 MG TAB.ER.24H PO SCH ×3 (09:10→20:51)
[2017-12-17] MEDS: GABAPENTIN 100 MG CAPSULE PO SCH ×3 (09:10→20:51)
[2017-12-17] MEDS: POTASSIUM CHLORIDE 20 MEQ TAB.ER.PRT PO SCH ×2 (09:11→15:53)
[2017-12-17] MEDS: RISPERIDONE 1 MG TABLET PO SCH (09:11)
[2017-12-17] MEDS: FUROSEMIDE 40 MG/4 ML IV SCH (09:11)
[2017-12-17] MEDS: TAMSULOSIN 0.4 MG CAP.ER.24H PO SCH (09:11)
[2017-12-17] MEDS: METOPROLOL SUCCINATE 100 MG TAB.ER.24H PO SCH (09:11)
[2017-12-17] MEDS ORDERED: DIGOXIN 0.25 MG/ML, 2ML IVPush ONE (11:30)
[2017-12-17 12:21] VITALS: BP 103/68
[2017-12-17] MEDS: DIGOXIN 0.25 MG/ML, 2ML IVPush SCH ×2 (15:53→20:51)
[2017-12-17] MEDS: RIVAROXABAN 20 MG TABLET PO SCH (15:53)
[2017-12-17 16:02] VITALS: BP 98/58
[2017-12-17 19:19] VITALS: BP 98/60
[2017-12-18] MEDS: TEMAZEPAM 15 MG CAPSULE PO PRN (00:18)
[2017-12-18 00:21] VITALS: BP 101/71
[2017-12-18] MEDS ORDERED: MAALOX/HYOSCYAMINE/LIDOCAINE 45 ML BTL PO PRN (08:00)
[2017-12-18 08:01] VITALS: BP 100/68
[2017-12-18] MEDS: POTASSIUM CHLORIDE 20 MEQ TAB.ER.PRT PO SCH ×2 (08:28→16:09)
[2017-12-18] MEDS: RISPERIDONE 1 MG TABLET PO SCH (08:28)
[2017-12-18] MEDS: TAMSULOSIN 0.4 MG CAP.ER.24H PO SCH (08:28)
[2017-12-18] MEDS: GABAPENTIN 100 MG CAPSULE PO SCH ×3 (08:28→20:50)
[2017-12-18] MEDS: DIVALPROEX 250 MG TAB.ER.24H PO SCH ×3 (08:28→20:50)
[2017-12-18] MEDS: METOPROLOL SUCCINATE 100 MG TAB.ER.24H PO SCH (08:28)
[2017-12-18] MEDS: LISINOPRIL 5 MG TABLET PO SCH (08:29)
[2017-12-18] MEDS: NYSTATIN TOPICAL POWDER 15GM TP SCH ×3 (08:29→20:50)
[2017-12-18] MEDS: FUROSEMIDE 40 MG/4 ML IV SCH (08:29)
[2017-12-18] MEDS ORDERED: DIGOXIN 0.25 MG/ML, 2ML IVPush SCH (09:00)
[2017-12-18 13:18] VITALS: BP 99/63
[2017-12-18] MEDS: RIVAROXABAN 20 MG TABLET PO SCH (16:09)
[2017-12-18 19:37] VITALS: BP 158/81
[2017-12-19] MEDS ORDERED: METOPROLOL SUCCINATE 100 MG TAB.ER.24H PO ONE (01:00)
[2017-12-19] MEDS ORDERED: DILTIAZEM 5 MG/ML, 5ML IVPush PRN (01:00)
[2017-12-19 01:05] VITALS: BP 138/82
[2017-12-19 07:38] VITALS: BP 132/80
[2017-12-19 07:59] LABS: ANION GAP 4 mmol/L (5-15); CALCIUM 8.7 mg/dL (8.5-10.1); CHLORIDE 102 mmol/L (98-107)
[2017-12-19 08:07] LABS: CREATININE 1.17 mg/dL (0.7-1.3)
[2017-12-19] MEDS ORDERED: LISINOPRIL 5 MG TABLET PO SCH (09:00)
[2017-12-19] MEDS ORDERED: FUROSEMIDE 40 MG/4 ML IV SCH (09:00)
[2017-12-19] MEDS ORDERED: DIGOXIN 0.25 MG/ML, 2ML IVPush SCH (09:00)
[2017-12-19] MEDS ORDERED: METOPROLOL SUCCINATE 100 MG TAB.ER.24H PO SCH ×3 (09:00)
[2017-12-19] MEDS: DIVALPROEX 250 MG TAB.ER.24H PO SCH (10:37)
[2017-12-19] MEDS: RISPERIDONE 1 MG TABLET PO SCH (10:38)
[2017-12-19] MEDS: TAMSULOSIN 0.4 MG CAP.ER.24H PO SCH (10:38)
[2017-12-19] MEDS: POTASSIUM CHLORIDE 20 MEQ TAB.ER.PRT PO SCH (10:38)
[2017-12-19] MEDS: GABAPENTIN 100 MG CAPSULE PO SCH (10:39)
[2017-12-19] MEDS: NYSTATIN TOPICAL POWDER 15GM TP SCH (10:51)
[2017-12-20] MEDS ORDERED: DIGOXIN 0.25 MG TABLET PO SCH (09:00)
== END 2017-12-19 13:34 | disposition home or self-care (01) | DRG 286 ==
LOC: ED 01:51 → EDIP 02:57 → 4WST 07:29
PROVIDERS: ADMIT Internal Medicine; ATTEND Internal Medicine
PROC: 4A023N7 Measurement of Cardiac Sampling and Pressure, Left Heart, Percutaneous Approach (ICD-10-PCS; principal; 2017-12-19)
PROC: B2151ZZ Fluoroscopy of Left Heart using Low Osmolar Contrast (ICD-10-PCS; 2017-12-19)
PROC: B2111ZZ Fluoroscopy of Multiple Coronary Arteries using Low Osmolar Contrast (ICD-10-PCS; 2017-12-19)
DX: I11.0 Hypertensive heart disease with heart failure (principal); J96.01 Acute respiratory failure with hypoxia; I95.9 Hypotension, unspecified; E11.51 Type 2 diabetes mellitus with diabetic peripheral angiopathy without gangrene; E66.01 Morbid (severe) obesity due to excess calories; G62.9 Polyneuropathy, unspecified; Z99.81 Dependence on supplemental oxygen; Z68.43 Body mass index [BMI] 50.0-59.9, adult; I50.23 Acute on chronic systolic (congestive) heart failure; I45.81 Long QT syndrome; I48.2 Chronic atrial fibrillation; G47.33 Obstructive sleep apnea (adult) (pediatric); I87.8 Other specified disorders of veins; I25.110 Atherosclerotic heart disease of native coronary artery with unstable angina pectoris; D64.9 Anemia, unspecified; J44.9 Chronic obstructive pulmonary disease, unspecified; K59.00 Constipation, unspecified; Z79.82 Long term (current) use of aspirin; Z79.01 Long term (current) use of anticoagulants; Z82.49 Family history of ischemic heart disease and other diseases of the circulatory system; Z86.711 Personal history of pulmonary embolism; Z99.3 Dependence on wheelchair; I25.2 Old myocardial infarction; Z88.0 Allergy status to penicillin
CPT/HCPCS: 36415; 71045; 74018; 80048; 80053; 83036; 83735; 83880; 84100; 84132; 84443; 84484; 85025; 85610; 85730; 87040; 93005; 96374; 96376; J1940; J1160

== ENCOUNTER 2018-02-12 06:26 | Inpatient (IN) | payer MEDICAID ==
[~2018-02-12] VITALS: Ht 203.2 cm; Wt 215.0 kg
[2018-02-12] MEDS ORDERED: METOPROLOL 1 MG/ML, 5ML IVPush ONE (07:00)
[2018-02-12] MEDS ORDERED: ALBUTEROL/IPRATROPIUM 2.5MG/0.5MG, 3 ML NPPB SCH (07:00)
[2018-02-12] MEDS ORDERED: SODIUM CHLORIDE FLUSH 10ML SYR IVF ONE (07:00)
[2018-02-12] MEDS ORDERED: ASPIRIN 81 MG TABLET CHEW PO ONE (07:00)
[2018-02-12] MEDS ORDERED: ALBUTEROL/IPRATROPIUM 2.5MG/0.5MG, 3 ML ONE ×2 (07:12→16:42)
[2018-02-12 07:18] LABS: BASOPHILS # (AUTO) 0.02 x10^3/uL (0-0.1); BASOPHILS % (AUTO) 1 % (0-1); EOSINOPHILS # (AUTO) 0.08 x10^3/uL (0-0.4); EOSINOPHILS % (AUTO) 2 % (1-7); LYMPHOCYTES # (AUTO) 1.16 x10^3/uL (1-3.4); LYMPHOCYTES % (AUTO) 29 % (22-44); MD NO; MEAN CORPUSCULAR HEMOGLOBIN 31.4 pg (27.5-34.5); MEAN CORPUSCULAR HGB CONC 33.1 g/dL (33.2-36.2); MONOCYTES # (AUTO) 0.26 x10^3/uL (0.2-0.8); MONOCYTES % (AUTO) 6 % (2-9); NEUTROPHILS # (AUTO) 2.55 x10^3/uL (1.8-6.8); NEUTROPHILS % (AUTO) 63 % (42-75); PLATELET COUNT 135 x10^3/uL (130-400); RED BLOOD COUNT 3.69 x10^6/uL (4.38-5.82); RED CELL DISTRIBUTION WIDTH 15.7 % (9.4-14.8)
[2018-02-12 07:31] LABS: ANION GAP 5 mmol/L (5-15); CALCIUM 8.2 mg/dL (8.5-10.1); CHLORIDE 110 mmol/L (98-107); CREATININE 1.24 mg/dL (0.7-1.3)
[2018-02-12 07:35] LABS: TROPONIN I < 0.015 ng/mL (0.000-0.045)
[2018-02-12] MEDS ORDERED: METOPROLOL 1 MG/ML, 5ML ONE (07:43)
[2018-02-12] MEDS ORDERED: ASPIRIN 81 MG TABLET CHEW ONE (07:43)
[2018-02-12] MEDS ORDERED: RIVA20TA PO ×2 (07:53→09:23)
[2018-02-12] MEDS ORDERED: SODIUM CHLORIDE FLUSH 10ML SYR IVF PRN (08:30)
[2018-02-12] MEDS ORDERED: DIVA250T14 PO (09:23)
[2018-02-12] MEDS ORDERED: TAMS0.4C2 PO (09:23)
[2018-02-12] MEDS ORDERED: METO-95 PO (09:23)
[2018-02-12] MEDS ORDERED: RISP2TAB3 PO (09:23)
[2018-02-12] MEDS ORDERED: lisinopril PO (09:23)
[2018-02-12] MEDS ORDERED: FURO-93 PO (09:23)
[2018-02-12] MEDS ORDERED: ACETAMINOPHEN 325 MG TABLET ONE (11:21)
[2018-02-12] MEDS: ACETAMINOPHEN 325 MG TABLET PO PRN ×2 (11:26→18:23)
[2018-02-12] MEDS: DIVALPROEX 250 MG TAB.ER.24H PO SCH ×3 (11:56→20:53)
[2018-02-12] MEDS: METOPROLOL SUCCINATE 100 MG TAB.ER.24H PO SCH (11:56)
[2018-02-12] MEDS ORDERED: MORPHINE SULFATE 4 MG/ML, 1ML ONE (12:39)
[2018-02-12] MEDS ORDERED: FUROSEMIDE 40 MG/4 ML ONE (12:41)
[2018-02-12] MEDS ORDERED: morphine SULFATE/PF 0.5 MG/ML, 10ML IV ONE (13:00)
[2018-02-12] MEDS ORDERED: FUROSEMIDE 40 MG/4 ML IV ONE (13:00)
[2018-02-12 13:19] LABS: TROPONIN I < 0.015 ng/mL (0.000-0.045)
[2018-02-12 15:07] VITALS: BP 112/78
[2018-02-12] MEDS ORDERED: ALBUTEROL/IPRATROPIUM 2.5MG/0.5MG, 3 ML NPPB PRN (17:00)
[2018-02-12] MEDS: POTASSIUM CHLORIDE 20 MEQ TAB.ER.PRT PO SCH (17:00)
[2018-02-12 19:25] LABS: TROPONIN I < 0.015 ng/mL (0.000-0.045)
[2018-02-12 20:00] VITALS: BP 111/80
[2018-02-12] MEDS: FUROSEMIDE 40 MG/4 ML IV SCH (20:14)
[2018-02-13 03:47] VITALS: BP 113/76
[2018-02-13 05:11] LABS: BASOPHILS # (AUTO) 0.02 x10^3/uL (0-0.1); BASOPHILS % (AUTO) 0 % (0-1); EOSINOPHILS # (AUTO) 0.09 x10^3/uL (0-0.4); EOSINOPHILS % (AUTO) 2 % (1-7); LYMPHOCYTES # (AUTO) 1.07 x10^3/uL (1-3.4); LYMPHOCYTES % (AUTO) 22 % (22-44); MD NO; MEAN CORPUSCULAR HEMOGLOBIN 32.1 pg (27.5-34.5); MEAN CORPUSCULAR HGB CONC 33.7 g/dL (33.2-36.2); MEAN CORPUSCULAR VOLUME 95.3 fL (81-97); MEAN PLATELET VOLUME 9.4 fL (7.4-10.4); MONOCYTES # (AUTO) 0.31 x10^3/uL (0.2-0.8); MONOCYTES % (AUTO) 6 % (2-9); NEUTROPHILS # (AUTO) 3.47 x10^3/uL (1.8-6.8); NEUTROPHILS % (AUTO) 70 % (42-75); PLATELET COUNT 138 x10^3/uL (130-400); RED BLOOD COUNT 3.87 x10^6/uL (4.38-5.82); RED CELL DISTRIBUTION WIDTH 15.6 % (9.4-14.8)
[2018-02-13 05:26] LABS: CALCIUM 7.9 mg/dL (8.5-10.1); CHLORIDE 106 mmol/L (98-107)
[2018-02-13 05:40] LABS: ALANINE AMINOTRANSFERASE 16 U/L (12-78); ALBUMIN 2.9 g/dL (3.4-5.0); ALKALINE PHOSPHATASE 90 U/L (45-117); ANION GAP 6 mmol/L (5-15); BILIRUBIN,TOTAL 1.3 mg/dL (0.2-1.0); CREATININE 1.35 mg/dL (0.7-1.3); TOTAL PROTEIN 6.6 g/dL (6.4-8.2)
[2018-02-13 07:37] VITALS: BP 110/75
[2018-02-13] MEDS: METOPROLOL SUCCINATE 100 MG TAB.ER.24H PO SCH (10:41)
[2018-02-13] MEDS: DIVALPROEX 250 MG TAB.ER.24H PO SCH ×3 (10:41→21:20)
[2018-02-13] MEDS: RIVAROXABAN 20 MG TABLET PO SCH (10:41)
[2018-02-13] MEDS: LISINOPRIL 5 MG TABLET PO SCH (10:41)
[2018-02-13] MEDS: FUROSEMIDE 40 MG/4 ML IV SCH ×2 (10:41→16:32)
[2018-02-13] MEDS: RISPERIDONE 2 MG TABLET PO SCH (10:42)
[2018-02-13] MEDS: TAMSULOSIN 0.4 MG CAP.ER.24H PO SCH (10:42)
[2018-02-13] MEDS: POTASSIUM CHLORIDE 20 MEQ TAB.ER.PRT PO SCH ×2 (10:42→16:31)
[2018-02-13 12:56] VITALS: BP 100/59
[2018-02-13 20:03] VITALS: BP 95/63
[2018-02-14 01:20] VITALS: BP 105/55
[2018-02-14 05:42] LABS: BASOPHILS # (AUTO) 0.01 x10^3/uL (0-0.1); BASOPHILS % (AUTO) 0 % (0-1); EOSINOPHILS # (AUTO) 0.08 x10^3/uL (0-0.4); EOSINOPHILS % (AUTO) 2 % (1-7); LYMPHOCYTES # (AUTO) 1.36 x10^3/uL (1-3.4); LYMPHOCYTES % (AUTO) 30 % (22-44); MD NO; MEAN CORPUSCULAR HEMOGLOBIN 31.5 pg (27.5-34.5); MEAN CORPUSCULAR HGB CONC 33.1 g/dL (33.2-36.2); MEAN CORPUSCULAR VOLUME 94.9 fL (81-97); MEAN PLATELET VOLUME 9.1 fL (7.4-10.4); MONOCYTES # (AUTO) 0.39 x10^3/uL (0.2-0.8); MONOCYTES % (AUTO) 9 % (2-9); NEUTROPHILS # (AUTO) 2.66 x10^3/uL (1.8-6.8); NEUTROPHILS % (AUTO) 59 % (42-75); PLATELET COUNT 144 x10^3/uL (130-400); RED BLOOD COUNT 4.02 x10^6/uL (4.38-5.82); RED CELL DISTRIBUTION WIDTH 15.7 % (9.4-14.8)
[2018-02-14 05:55] LABS: ALANINE AMINOTRANSFERASE 14 U/L (12-78); ALBUMIN 2.7 g/dL (3.4-5.0); ANION GAP 6 mmol/L (5-15); CHLORIDE 105 mmol/L (98-107); CREATININE 1.15 mg/dL (0.7-1.3)
[2018-02-14 05:58] LABS: ALKALINE PHOSPHATASE 81 U/L (45-117); BILIRUBIN,TOTAL 0.9 mg/dL (0.2-1.0); TOTAL PROTEIN 6.5 g/dL (6.4-8.2)
[2018-02-14] MEDS: FUROSEMIDE 40 MG/4 ML IV SCH ×2 (07:30→16:13)
[2018-02-14] MEDS: POTASSIUM CHLORIDE 20 MEQ TAB.ER.PRT PO SCH ×3 (08:00→16:13)
[2018-02-14] MEDS: TAMSULOSIN 0.4 MG CAP.ER.24H PO SCH ×2 (08:48→10:31)
[2018-02-14] MEDS: RISPERIDONE 2 MG TABLET PO SCH ×2 (08:48→10:31)
[2018-02-14] MEDS: METOPROLOL SUCCINATE 100 MG TAB.ER.24H PO SCH ×2 (08:48→10:31)
[2018-02-14] MEDS: LISINOPRIL 5 MG TABLET PO SCH ×2 (08:48→10:31)
[2018-02-14] MEDS: DIVALPROEX 250 MG TAB.ER.24H PO SCH ×2 (08:48→10:31)
[2018-02-14] MEDS: RIVAROXABAN 20 MG TABLET PO SCH ×2 (08:48→10:31)
[2018-02-14 10:20] VITALS: BP 114/76
[2018-02-14] MEDS ORDERED: FURO40TA6 PO (12:38)
== END 2018-02-14 17:24 | disposition home or self-care (01) | DRG 683 ==
LOC: ED 08:09 → EDIP 08:26 → 5SO 14:18
PROVIDERS: ADMIT Internal Medicine; ATTEND Internal Medicine
DX: N17.9 Acute kidney failure, unspecified (principal); E44.0 Moderate protein-calorie malnutrition; D68.69 Other thrombophilia; E11.51 Type 2 diabetes mellitus with diabetic peripheral angiopathy without gangrene; E66.01 Morbid (severe) obesity due to excess calories; I11.0 Hypertensive heart disease with heart failure; I50.42 Chronic combined systolic (congestive) and diastolic (congestive) heart failure; I48.2 Chronic atrial fibrillation; I48.92 Unspecified atrial flutter; J44.1 Chronic obstructive pulmonary disease with (acute) exacerbation; Z68.43 Body mass index [BMI] 50.0-59.9, adult; I87.8 Other specified disorders of veins; D64.9 Anemia, unspecified; G47.33 Obstructive sleep apnea (adult) (pediatric); Z79.01 Long term (current) use of anticoagulants; Z79.899 Other long term (current) drug therapy; Z83.3 Family history of diabetes mellitus; Z86.711 Personal history of pulmonary embolism; Z91.19 Patient's noncompliance with other medical treatment and regimen; Z99.3 Dependence on wheelchair; Z88.0 Allergy status to penicillin
CPT/HCPCS: 36415; 71045; 80048; 80053; 82040; 83605; 83735; 83880; 84443; 84484; 85025; 93005; 93970; 94640; 96374; 96375; J1940; J2274; J7620

== ENCOUNTER 2018-03-31 19:08 | Inpatient (IN) | payer MEDICAID ==
[~2018-03-31] VITALS: Ht 203.2 cm; Wt 214.0 kg
[~2018-03-31 19:08] MED LIST changes: +FURO40TA6 PO; +RISP2TAB3 PO; +TAMS0.4C2 PO; +lisinopril PO
[2018-03-31] MEDS ORDERED: SODIUM CHLORIDE FLUSH 10ML SYR IVF ONE (19:30)
[2018-03-31] MEDS ORDERED: METOPROLOL 1 MG/ML, 5ML IVPush PRN (19:30)
[2018-03-31] MEDS ORDERED: METOPROLOL 1 MG/ML, 5ML ONE (20:26)
[2018-03-31 20:30] LABS: BASOPHILS # (AUTO) 0.03 x10^3/uL (0-0.1); BASOPHILS % (AUTO) 1 % (0-1); EOSINOPHILS # (AUTO) 0.09 x10^3/uL (0-0.4); EOSINOPHILS % (AUTO) 1 % (1-7); LYMPHOCYTES # (AUTO) 1.07 x10^3/uL (1-3.4); LYMPHOCYTES % (AUTO) 17 % (22-44); MD NO; MEAN CORPUSCULAR HGB CONC 32.8 g/dL (33.2-36.2); MEAN CORPUSCULAR VOLUME 94.3 fL (81-97); MEAN PLATELET VOLUME 8.6 fL (7.4-10.4); MONOCYTES # (AUTO) 0.48 x10^3/uL (0.2-0.8); MONOCYTES % (AUTO) 8 % (2-9); NEUTROPHILS # (AUTO) 4.66 x10^3/uL (1.8-6.8); NEUTROPHILS % (AUTO) 74 % (42-75); PLATELET COUNT 171 x10^3/uL (130-400); RED BLOOD COUNT 3.74 x10^6/uL (4.38-5.82); RED CELL DISTRIBUTION WIDTH 16.1 % (9.4-14.8)
[2018-03-31 20:43] LABS: ALANINE AMINOTRANSFERASE 13 U/L (12-78); ALBUMIN 2.9 g/dL (3.4-5.0); ANION GAP 7 mmol/L (5-15); CALCIUM 8.6 mg/dL (8.5-10.1); CHLORIDE 107 mmol/L (98-107); CREATININE 1.05 mg/dL (0.7-1.3)
[2018-03-31 20:52] LABS: INTERNATIONAL NORMALIZED RATIO 1.11 (0.93-1.1); PROTHROMBIN TIME 11.4 Seconds (9.6-11.5)
[2018-03-31 20:59] LABS: ALKALINE PHOSPHATASE 73 U/L (45-117); BILIRUBIN,TOTAL 0.9 mg/dL (0.2-1.0); TOTAL PROTEIN 7.1 g/dL (6.4-8.2)
[2018-03-31] MEDS ORDERED: MORPHINE SULFATE 4 MG/ML, 1ML IVPush PRN (21:00)
[2018-03-31] MEDS ORDERED: ONDANSETRON ODT 4 MG PO ONE (21:00)
[2018-03-31] MEDS ORDERED: ONDANSETRON ODT 4 MG ONE (21:11)
[2018-03-31] MEDS ORDERED: MORPHINE SULFATE 4 MG/ML, 1ML ONE (21:11)
[2018-03-31 21:28] LABS: TROPONIN I < 0.015 ng/mL (0.000-0.045)
[2018-03-31] MEDS ORDERED: DIGO125T PO (22:08)
[2018-03-31 23:10] VITALS: BP 105/69
[2018-04-01] MEDS ORDERED: BISACODYL 10 MG SUPP PR PRN (01:00)
[2018-04-01] MEDS ORDERED: LABETALOL 5MG/ML, 20ML IVPush PRN (01:00)
[2018-04-01] MEDS ORDERED: hydrALAzine 20 MG/ML, 1ML IVPush PRN (01:00)
[2018-04-01] MEDS ORDERED: morphine SULFATE 10 MG/ML, 1ML IVPush PRN (01:00)
[2018-04-01] MEDS ORDERED: PROMETHAZINE 25 MG/ML, 1ML IM PRN (01:00)
[2018-04-01] MEDS ORDERED: ACETAMINOPHEN 325 MG TABLET PO PRN (01:00)
[2018-04-01] MEDS ORDERED: ONDANSETRON 2MG/ML, 2ML IVPush PRN (01:00)
[2018-04-01] MEDS ORDERED: ONDANSETRON ODT 4 MG PO PRN (01:00)
[2018-04-01 01:15] LABS: FREE T4 (FREE THYROXINE) 1.23 ng/dL (0.76-1.46); THYROID STIMULATING HORMONE 4.84 mIU/L (0.358-3.740)
[2018-04-01 01:17] LABS: HEMOGLOBIN A1C 5.9 % (4.2-6.3)
[2018-04-01] MEDS: OXYcodone IR 5MG TABLET PO PRN ×3 (01:22→19:34)
[2018-04-01] MEDS: FUROSEMIDE 40 MG/4 ML IV SCH ×3 (01:22→17:53)
[2018-04-01 02:29] VITALS: BP 103/64
[2018-04-01 04:26] LABS: MICROSCOPIC NOT IND
[2018-04-01 04:35] LABS: CULTURE INDICATED? NO
[2018-04-01 07:48] VITALS: BP 93/52
[2018-04-01] MEDS: RISPERIDONE 2 MG TABLET PO SCH (07:52)
[2018-04-01] MEDS: TAMSULOSIN 0.4 MG CAP.ER.24H PO SCH (07:53)
[2018-04-01] MEDS: RIVAROXABAN 20 MG TABLET PO SCH (07:53)
[2018-04-01] MEDS: METOPROLOL SUCCINATE 100 MG TAB.ER.24H PO SCH (07:54)
[2018-04-01] MEDS: DIGOXIN 0.125 MG TABLET PO SCH (07:55)
[2018-04-01] MEDS ORDERED: LISINOPRIL 5 MG TABLET PO SCH (09:00)
[2018-04-01 09:10] VITALS: BP 94/64
[2018-04-01 14:23] VITALS: BP 92/53
[2018-04-01 19:24] VITALS: BP 92/58
[2018-04-01] MEDS: DOCUSATE 100 MG CAPSULE PO PRN (19:34)
[2018-04-01] MEDS: POLYETHYLENE GLYCOL 17 GM PACKET PO PRN (19:34)
[2018-04-01] MEDS: METOPROLOL 1 MG/ML, 5ML IVPush PRN (21:56)
[2018-04-02] MEDS: OXYcodone IR 5MG TABLET PO PRN ×4 (00:50→21:57)
[2018-04-02 03:59] VITALS: BP 93/58
[2018-04-02 05:07] LABS: BASOPHILS # (AUTO) 0.01 x10^3/uL (0-0.1); BASOPHILS % (AUTO) 0 % (0-1); EOSINOPHILS # (AUTO) 0.15 x10^3/uL (0-0.4); EOSINOPHILS % (AUTO) 3 % (1-7); LYMPHOCYTES # (AUTO) 1.07 x10^3/uL (1-3.4); LYMPHOCYTES % (AUTO) 18 % (22-44); MD NO; MEAN CORPUSCULAR VOLUME 93.8 fL (81-97); MEAN PLATELET VOLUME 8.4 fL (7.4-10.4); MONOCYTES # (AUTO) 0.54 x10^3/uL (0.2-0.8); MONOCYTES % (AUTO) 9 % (2-9); NEUTROPHILS # (AUTO) 4.26 x10^3/uL (1.8-6.8); NEUTROPHILS % (AUTO) 71 % (42-75); PLATELET COUNT 155 x10^3/uL (130-400); RED BLOOD COUNT 3.59 x10^6/uL (4.38-5.82); RED CELL DISTRIBUTION WIDTH 15.9 % (9.4-14.8)
[2018-04-02 05:09] LABS: ALANINE AMINOTRANSFERASE 14 U/L (12-78); ALBUMIN 2.6 g/dL (3.4-5.0); ANION GAP 3 mmol/L (5-15); CALCIUM 8.4 mg/dL (8.5-10.1); CHLORIDE 103 mmol/L (98-107); CREATININE 1.35 mg/dL (0.7-1.3)
[2018-04-02 05:12] LABS: ALKALINE PHOSPHATASE 72 U/L (45-117); BILIRUBIN,TOTAL 0.6 mg/dL (0.2-1.0); CHOL/HDL RATIO 2.4; CHOLESTEROL, TOTAL 118 mg/dL (140-239); HDL CHOL % 42 % (26-37); HDL CHOLESTEROL (DIRECT) 50 mg/dL (40-60); LDL CHOLESTEROL,CALCULATED 60 mg/dL (54-169); LDL/HDL RATIO 1.2 (0.5-3.0); TOTAL PROTEIN 6.9 g/dL (6.4-8.2); TRIGLYCERIDES 38 mg/dL (50-200); VLDL CHOLESTEROL 8 mg/dL (0-25)
[2018-04-02] MEDS: METOPROLOL 1 MG/ML, 5ML IVPush PRN (06:52)
[2018-04-02 07:20] VITALS: BP 92/65
[2018-04-02] MEDS: FUROSEMIDE 40 MG/4 ML IV SCH ×2 (07:30→15:36)
[2018-04-02] MEDS: LISINOPRIL 5 MG TABLET PO SCH (08:54)
[2018-04-02] MEDS: TAMSULOSIN 0.4 MG CAP.ER.24H PO SCH (09:16)
[2018-04-02] MEDS: RIVAROXABAN 20 MG TABLET PO SCH (09:16)
[2018-04-02] MEDS: METOPROLOL SUCCINATE 100 MG TAB.ER.24H PO SCH (09:16)
[2018-04-02] MEDS: RISPERIDONE 2 MG TABLET PO SCH (09:16)
[2018-04-02] MEDS: DIGOXIN 0.125 MG TABLET PO SCH (09:16)
[2018-04-02] MEDS: GABAPENTIN 300 MG CAPSULE PO SCH ×3 (13:39→21:57)
[2018-04-02] MEDS: ALBUMIN HUMAN 25% 100 ML IV SCH ×2 (13:39→21:58)
[2018-04-02 14:05] VITALS: BP 93/52
[2018-04-02 19:53] VITALS: BP 94/62
[2018-04-03 02:49] VITALS: BP 92/57
[2018-04-03] MEDS: ALBUMIN HUMAN 25% 100 ML IV SCH ×4 (05:00→21:47)
[2018-04-03 06:06] LABS: CHLORIDE 102 mmol/L (98-107)
[2018-04-03 06:48] LABS: ANION GAP 8 mmol/L (5-15); CALCIUM 8.1 mg/dL (8.5-10.1); CREATININE 1.22 mg/dL (0.7-1.3)
[2018-04-03 08:30] VITALS: BP 97/65
[2018-04-03] MEDS: FUROSEMIDE 40 MG/4 ML IV SCH ×2 (08:33→17:32)
[2018-04-03] MEDS: DIGOXIN 0.125 MG TABLET PO SCH (08:33)
[2018-04-03] MEDS: TAMSULOSIN 0.4 MG CAP.ER.24H PO SCH (08:33)
[2018-04-03] MEDS: RISPERIDONE 2 MG TABLET PO SCH (08:33)
[2018-04-03] MEDS: RIVAROXABAN 20 MG TABLET PO SCH (08:33)
[2018-04-03] MEDS: GABAPENTIN 300 MG CAPSULE PO SCH ×3 (08:34→21:23)
[2018-04-03] MEDS: METOPROLOL SUCCINATE 100 MG TAB.ER.24H PO SCH (08:34)
[2018-04-03] MEDS: LISINOPRIL 5 MG TABLET PO SCH (08:34)
[2018-04-03] MEDS: DOCUSATE 100 MG CAPSULE PO PRN (11:08)
[2018-04-03] MEDS: POLYETHYLENE GLYCOL 17 GM PACKET PO PRN (11:08)
[2018-04-03] MEDS: CEFTAROLINE 600 MG in SODIUM CHLORIDE 0.9% 100 ML IV SCH (14:25)
[2018-04-03 14:31] VITALS: BP 99/67
[2018-04-03] MEDS ORDERED: MAGNESIUM CITRATE 300ML ORAL SOL PO ONE (15:00)
[2018-04-03] MEDS: ALBUTEROL/IPRATROPIUM 2.5MG/0.5MG, 3 ML NPPB PRN (16:25)
[2018-04-03 17:32] VITALS: BP 92/60
[2018-04-03 20:00] VITALS: BP 92/57
[2018-04-04 00:25] VITALS: BP 104/64
[2018-04-04] MEDS: CEFTAROLINE 600 MG in SODIUM CHLORIDE 0.9% 100 ML IV SCH ×2 (01:38→14:15)
[2018-04-04] MEDS: OXYcodone IR 5MG TABLET PO PRN ×2 (01:39→09:11)
[2018-04-04] MEDS: ALBUMIN HUMAN 25% 100 ML IV SCH ×5 (04:22→22:46)
[2018-04-04 06:40] LABS: ALBUMIN 3.2 g/dL (3.4-5.0); ANION GAP 5 mmol/L (5-15); CALCIUM 7.9 mg/dL (8.5-10.1); CHLORIDE 105 mmol/L (98-107)
[2018-04-04 06:41] LABS: CREATININE 1.09 mg/dL (0.7-1.3)
[2018-04-04 07:01] VITALS: BP 100/68
[2018-04-04] MEDS: FUROSEMIDE 40 MG/4 ML IV SCH ×3 (09:05→17:21)
[2018-04-04] MEDS: TAMSULOSIN 0.4 MG CAP.ER.24H PO SCH (09:08)
[2018-04-04] MEDS: RISPERIDONE 2 MG TABLET PO SCH (09:09)
[2018-04-04] MEDS: METOPROLOL SUCCINATE 100 MG TAB.ER.24H PO SCH (09:09)
[2018-04-04] MEDS: DIGOXIN 0.125 MG TABLET PO SCH (09:09)
[2018-04-04] MEDS: GABAPENTIN 300 MG CAPSULE PO SCH ×3 (09:10→20:22)
[2018-04-04] MEDS: LISINOPRIL 5 MG TABLET PO SCH (09:10)
[2018-04-04] MEDS: RIVAROXABAN 20 MG TABLET PO SCH (09:10)
[2018-04-04 18:15] VITALS: BP 112/72
[2018-04-04 20:22] VITALS: BP 112/68
[2018-04-05 01:00] VITALS: BP 136/88
[2018-04-05] MEDS: CEFTAROLINE 600 MG in SODIUM CHLORIDE 0.9% 100 ML IV SCH ×2 (02:01→15:05)
[2018-04-05] MEDS: ALBUTEROL/IPRATROPIUM 2.5MG/0.5MG, 3 ML NPPB PRN (04:21)
[2018-04-05] MEDS: ALBUMIN HUMAN 25% 100 ML IV SCH ×5 (04:53→22:00)
[2018-04-05 05:17] LABS: BASOPHILS # (AUTO) 0.02 x10^3/uL (0-0.1); BASOPHILS % (AUTO) 0 % (0-1); EOSINOPHILS # (AUTO) 0.16 x10^3/uL (0-0.4); EOSINOPHILS % (AUTO) 3 % (1-7); LYMPHOCYTES # (AUTO) 0.89 x10^3/uL (1-3.4); LYMPHOCYTES % (AUTO) 19 % (22-44); MD NO; MEAN CORPUSCULAR HEMOGLOBIN 30.6 pg (27.5-34.5); MEAN CORPUSCULAR HGB CONC 32.8 g/dL (33.2-36.2); MEAN CORPUSCULAR VOLUME 93.3 fL (81-97); MEAN PLATELET VOLUME 8.3 fL (7.4-10.4); MONOCYTES % (AUTO) 8 % (2-9); NEUTROPHILS # (AUTO) 3.35 x10^3/uL (1.8-6.8); NEUTROPHILS % (AUTO) 70 % (42-75); PLATELET COUNT 152 x10^3/uL (130-400); RED BLOOD COUNT 3.34 x10^6/uL (4.38-5.82); RED CELL DISTRIBUTION WIDTH 16.1 % (9.4-14.8)
[2018-04-05 05:23] LABS: ANION GAP 6 mmol/L (5-15); CHLORIDE 105 mmol/L (98-107); CREATININE 1.13 mg/dL (0.7-1.3)
[2018-04-05] MEDS: OXYcodone IR 5MG TABLET PO PRN (06:25)
[2018-04-05 07:50] VITALS: BP 121/72
[2018-04-05] MEDS: LISINOPRIL 5 MG TABLET PO SCH (08:32)
[2018-04-05] MEDS: GABAPENTIN 300 MG CAPSULE PO SCH ×3 (08:34→21:47)
[2018-04-05] MEDS: FUROSEMIDE 40 MG/4 ML IV SCH ×2 (08:34→18:05)
[2018-04-05] MEDS: TAMSULOSIN 0.4 MG CAP.ER.24H PO SCH (08:35)
[2018-04-05] MEDS: RIVAROXABAN 20 MG TABLET PO SCH (08:35)
[2018-04-05] MEDS: METOPROLOL SUCCINATE 100 MG TAB.ER.24H PO SCH (08:36)
[2018-04-05] MEDS: RISPERIDONE 2 MG TABLET PO SCH (08:36)
[2018-04-05] MEDS: DIGOXIN 0.125 MG TABLET PO SCH (08:48)
[2018-04-05 17:48] VITALS: BP 130/81
[2018-04-05 19:17] VITALS: BP 128/72
[2018-04-06 01:30] VITALS: BP 139/80
[2018-04-06] MEDS: CEFTAROLINE 600 MG in SODIUM CHLORIDE 0.9% 100 ML IV SCH ×2 (02:27→13:31)
[2018-04-06 05:53] LABS: CHLORIDE 104 mmol/L (98-107)
[2018-04-06 06:03] LABS: ANION GAP 4 mmol/L (5-15); CALCIUM 8.2 mg/dL (8.5-10.1)
[2018-04-06 07:58] VITALS: BP 129/84
[2018-04-06] MEDS: FUROSEMIDE 40 MG/4 ML IV SCH ×2 (08:59→16:57)
[2018-04-06 09:00] VITALS: BP 118/81
[2018-04-06] MEDS: TAMSULOSIN 0.4 MG CAP.ER.24H PO SCH (09:02)
[2018-04-06] MEDS: METOPROLOL SUCCINATE 100 MG TAB.ER.24H PO SCH (09:02)
[2018-04-06] MEDS: DIGOXIN 0.125 MG TABLET PO SCH (09:02)
[2018-04-06] MEDS: RIVAROXABAN 20 MG TABLET PO SCH (09:02)
[2018-04-06] MEDS: GABAPENTIN 300 MG CAPSULE PO SCH ×3 (09:02→22:26)
[2018-04-06] MEDS: LISINOPRIL 5 MG TABLET PO SCH (09:03)
[2018-04-06] MEDS: RISPERIDONE 2 MG TABLET PO SCH (09:05)
[2018-04-06 14:30] VITALS: BP 119/81
[2018-04-06 20:50] VITALS: BP 115/79
[2018-04-07] MEDS: CEFTAROLINE 600 MG in SODIUM CHLORIDE 0.9% 100 ML IV SCH ×2 (02:05→13:02)
[2018-04-07 02:33] VITALS: BP 121/78
[2018-04-07 05:41] LABS: CHLORIDE 104 mmol/L (98-107)
[2018-04-07 05:50] LABS: ANION GAP 7 mmol/L (5-15); CALCIUM 8.8 mg/dL (8.5-10.1); CREATININE 1.07 mg/dL (0.7-1.3)
[2018-04-07 07:32] VITALS: BP 128/75
[2018-04-07] MEDS: FUROSEMIDE 40 MG/4 ML IV SCH ×2 (08:33→17:08)
[2018-04-07] MEDS: DIGOXIN 0.125 MG TABLET PO SCH (08:34)
[2018-04-07] MEDS: RIVAROXABAN 20 MG TABLET PO SCH (08:34)
[2018-04-07] MEDS: GABAPENTIN 300 MG CAPSULE PO SCH ×3 (08:34→21:45)
[2018-04-07] MEDS: TAMSULOSIN 0.4 MG CAP.ER.24H PO SCH (08:34)
[2018-04-07] MEDS: METOPROLOL SUCCINATE 100 MG TAB.ER.24H PO SCH (08:34)
[2018-04-07] MEDS: RISPERIDONE 2 MG TABLET PO SCH (08:34)
[2018-04-07] MEDS: LISINOPRIL 5 MG TABLET PO SCH (08:36)
[2018-04-07 13:15] VITALS: BP 112/77
[2018-04-07] MEDS: DILTIAZEM CD 180 MG CAP.ER.24H PO SCH (14:23)
[2018-04-07 20:10] VITALS: BP 94/60
[2018-04-08] MEDS: CEFTAROLINE 600 MG in SODIUM CHLORIDE 0.9% 100 ML IV SCH ×2 (01:10→14:04)
[2018-04-08 02:27] VITALS: BP 105/58
[2018-04-08 08:20] VITALS: BP 107/67
[2018-04-08] MEDS: LISINOPRIL 5 MG TABLET PO SCH (09:33)
[2018-04-08] MEDS: DIGOXIN 0.125 MG TABLET PO SCH (09:33)
[2018-04-08] MEDS: RIVAROXABAN 20 MG TABLET PO SCH (09:33)
[2018-04-08] MEDS: RISPERIDONE 2 MG TABLET PO SCH (09:33)
[2018-04-08] MEDS: GABAPENTIN 300 MG CAPSULE PO SCH ×3 (09:33→21:17)
[2018-04-08] MEDS: FUROSEMIDE 40 MG/4 ML IV SCH ×2 (09:33→15:30)
[2018-04-08] MEDS: DILTIAZEM CD 180 MG CAP.ER.24H PO SCH (09:34)
[2018-04-08] MEDS: METOPROLOL SUCCINATE 100 MG TAB.ER.24H PO SCH (09:34)
[2018-04-08] MEDS: TAMSULOSIN 0.4 MG CAP.ER.24H PO SCH (09:34)
[2018-04-08] MEDS: OXYcodone IR 5MG TABLET PO PRN ×3 (10:38→15:30)
[2018-04-08 12:57] VITALS: BP 101/61
[2018-04-08 19:13] VITALS: BP 98/58
[2018-04-09] MEDS: CEFTAROLINE 600 MG in SODIUM CHLORIDE 0.9% 100 ML IV SCH ×2 (01:27→13:17)
[2018-04-09 02:11] VITALS: BP 111/68
[2018-04-09 05:56] LABS: BASOPHILS # (AUTO) 0.02 x10^3/uL (0-0.1); BASOPHILS % (AUTO) 0 % (0-1); EOSINOPHILS # (AUTO) 0.25 x10^3/uL (0-0.4); EOSINOPHILS % (AUTO) 5 % (1-7); LYMPHOCYTES % (AUTO) 23 % (22-44); MD NO; MEAN CORPUSCULAR HEMOGLOBIN 30.6 pg (27.5-34.5); MEAN CORPUSCULAR HGB CONC 33.2 g/dL (33.2-36.2); MEAN CORPUSCULAR VOLUME 92.2 fL (81-97); MEAN PLATELET VOLUME 7.8 fL (7.4-10.4); MONOCYTES # (AUTO) 0.45 x10^3/uL (0.2-0.8); MONOCYTES % (AUTO) 9 % (2-9); NEUTROPHILS % (AUTO) 64 % (42-75); PLATELET COUNT 203 x10^3/uL (130-400); RED BLOOD COUNT 3.88 x10^6/uL (4.38-5.82); RED CELL DISTRIBUTION WIDTH 15.9 % (9.4-14.8)
[2018-04-09 06:04] LABS: CALCIUM 8.5 mg/dL (8.5-10.1); CHLORIDE 103 mmol/L (98-107)
[2018-04-09 06:07] LABS: ANION GAP 5 mmol/L (5-15); CREATININE 1.41 mg/dL (0.7-1.3)
[2018-04-09 08:08] VITALS: BP 116/64
[2018-04-09] MEDS: DILTIAZEM CD 180 MG CAP.ER.24H PO SCH (09:24)
[2018-04-09] MEDS: FUROSEMIDE 40 MG/4 ML IV SCH (09:24)
[2018-04-09] MEDS: RISPERIDONE 2 MG TABLET PO SCH (09:25)
[2018-04-09] MEDS: DIGOXIN 0.125 MG TABLET PO SCH (09:25)
[2018-04-09] MEDS: RIVAROXABAN 20 MG TABLET PO SCH (09:25)
[2018-04-09] MEDS: GABAPENTIN 300 MG CAPSULE PO SCH (09:25)
[2018-04-09] MEDS: TAMSULOSIN 0.4 MG CAP.ER.24H PO SCH (09:25)
[2018-04-09] MEDS: METOPROLOL SUCCINATE 100 MG TAB.ER.24H PO SCH (09:26)
[2018-04-09] MEDS: LISINOPRIL 5 MG TABLET PO SCH (09:26)
[2018-04-09] MEDS ORDERED: DILT240C PO (12:59)
[2018-04-09] MEDS ORDERED: GABA300C10 PO (12:59)
[2018-04-09] MEDS ORDERED: CEFD300C37 PO (12:59)
[2018-04-09] MEDS ORDERED: IPRA4AER INH (12:59)
[2018-04-09] MEDS ORDERED: DOCU-131 PO (12:59)
[2018-04-09] MEDS ORDERED: POTA20PA25 PO (12:59)
[2018-04-09] MEDS ORDERED: ACET-1600 PO (12:59)
[2018-04-09] MEDS ORDERED: FURO40TA6 PO (12:59)
[2018-04-09] MEDS ORDERED: FUROSEMIDE 40 MG TABLET PO SCH (17:00)
== END 2018-04-09 16:10 | disposition home or self-care (01) | DRG 308 ==
LOC: ED 21:52 → EDIP 22:12 → 5SO 22:57 → 4WST 04-03 19:42
PROVIDERS: ADMIT Internal Medicine; ATTEND Internal Medicine
DX: I48.91 Unspecified atrial fibrillation (principal); E43 Unspecified severe protein-calorie malnutrition; I50.23 Acute on chronic systolic (congestive) heart failure; D68.69 Other thrombophilia; L03.116 Cellulitis of left lower limb; L03.115 Cellulitis of right lower limb; I11.0 Hypertensive heart disease with heart failure; I48.92 Unspecified atrial flutter; N40.0 Benign prostatic hyperplasia without lower urinary tract symptoms; J44.9 Chronic obstructive pulmonary disease, unspecified; I48.2 Chronic atrial fibrillation; E66.01 Morbid (severe) obesity due to excess calories; F29 Unspecified psychosis not due to a substance or known physiological condition; G47.33 Obstructive sleep apnea (adult) (pediatric); I87.8 Other specified disorders of veins; I42.9 Cardiomyopathy, unspecified; E11.51 Type 2 diabetes mellitus with diabetic peripheral angiopathy without gangrene; Z91.19 Patient's noncompliance with other medical treatment and regimen; Z91.14 Patient's other noncompliance with medication regimen; Z83.3 Family history of diabetes mellitus; Z68.43 Body mass index [BMI] 50.0-59.9, adult; Z59.0 Homelessness; Z86.711 Personal history of pulmonary embolism; Z88.0 Allergy status to penicillin; Z79.01 Long term (current) use of anticoagulants
CPT/HCPCS: 36415; 71045; 71275; 80048; 80053; 80061; 80162; 80164; 81003; 82040; 82962; 83036; 83690; 83735; 83880; 84439; 84443; 84484; 85025; 85379; 85610; 85730; 87070; 87147; 87205; 93005; 93970; 94640; 96374; 96375; J0712; J1940; J7620; P9047; Q0162

== ENCOUNTER 2018-05-03 20:01 | Inpatient (IN) | payer MEDICAID ==
[~2018-05-03] VITALS: Ht 203.2 cm; Wt 201.0 kg
[~2018-05-03 20:01] MED LIST changes: +ACET-1600 PO; +CEFD300C37 PO; +DIGO125T PO; +DILT240C PO; +DOCU-131 PO; +GABA300C10 PO; +IPRA4AER INH; +POTA20PA25 PO
[2018-05-03 21:17] LABS: BASOPHILS # (AUTO) 0.02 x10^3/uL (0-0.1); BASOPHILS % (AUTO) 0 % (0-1); EOSINOPHILS # (AUTO) 0.07 x10^3/uL (0-0.4); EOSINOPHILS % (AUTO) 1 % (1-7); LYMPHOCYTES # (AUTO) 1.45 x10^3/uL (1-3.4); LYMPHOCYTES % (AUTO) 25 % (22-44); MD NO; MEAN CORPUSCULAR HEMOGLOBIN 30.6 pg (27.5-34.5); MEAN CORPUSCULAR HGB CONC 33.6 g/dL (33.2-36.2); MEAN CORPUSCULAR VOLUME 91.1 fL (81-97); MEAN PLATELET VOLUME 8.1 fL (7.4-10.4); MONOCYTES # (AUTO) 0.37 x10^3/uL (0.2-0.8); MONOCYTES % (AUTO) 6 % (2-9); NEUTROPHILS # (AUTO) 3.94 x10^3/uL (1.8-6.8); NEUTROPHILS % (AUTO) 67 % (42-75); PLATELET COUNT 193 x10^3/uL (130-400); RED BLOOD COUNT 4.12 x10^6/uL (4.38-5.82); RED CELL DISTRIBUTION WIDTH 16.8 % (9.4-14.8)
[2018-05-03 21:29] LABS: ALBUMIN 3.1 g/dL (3.4-5.0); ANION GAP 7 mmol/L (5-15); CALCIUM 8.5 mg/dL (8.5-10.1); CHLORIDE 110 mmol/L (98-107); CREATININE 1.16 mg/dL (0.7-1.3)
[2018-05-03 21:30] LABS: ACETAMINOPHEN < 2 mcg/mL (10-30); SALICYLATE LEVEL < 1.7 mg/dL (2.8-20.0)
[2018-05-03 21:33] LABS: TROPONIN I < 0.015 ng/mL (0.000-0.045)
[2018-05-03] MEDS ORDERED: DILTIAZEM 5 MG/ML, 5ML IVPush ONE ×2 (22:00→23:00)
[2018-05-03] MEDS ORDERED: DILTIAZEM 5 MG/ML, 5ML ONE ×2 (22:03→22:50)
[2018-05-03 23:22] LABS: AMPHETAMINE SCREEN, URINE Negative (Negative); BARBITURATE SCREEN, URINE Negative (Negative); BENZODIAZEPINE SCREEN, URINE Negative (Negative); CANNABINOID SCREEN, URINE Negative (Negative); COCAINE SCREEN, URINE Negative (Negative); METHADONE SCREEN, URINE Negative (Negative); OPIATE SCREEN, URINE Negative (Negative)
[2018-05-03] MEDS ORDERED: ZIPRASIDONE 20 MG INJ IM ONE (23:50)
[2018-05-04] MEDS ORDERED: ZIPRASIDONE 20 MG INJ IM ONE
[2018-05-04] MEDS ORDERED: DILTIAZEM 5 MG/ML, 5ML IVPush ONE
[2018-05-04] MEDS ORDERED: POTASSIUM CHLORIDE 20 MEQ TAB.ER.PRT PO ONE (04:00)
[2018-05-04] MEDS ORDERED: POTASSIUM CHLORIDE 20 MEQ TAB.ER.PRT ONE (04:08)
[2018-05-04] MEDS ORDERED: ACETAMINOPHEN 325 MG TABLET ONE (04:16)
[2018-05-04 04:19] LABS: INTERNATIONAL NORMALIZED RATIO 1.11 (0.93-1.1); PROTHROMBIN TIME 11.5 Seconds (9.6-11.5)
[2018-05-04] MEDS ORDERED: ACETAMINOPHEN 325 MG TABLET PO ONE (04:30)
[2018-05-04] MEDS ORDERED: SODIUM CHLORIDE 0.9% 1,000 ML IV SCH (04:40)
[2018-05-04] MEDS ORDERED: ONDANSETRON 2MG/ML, 2ML IVPush PRN (05:00)
[2018-05-04] MEDS ORDERED: ALBUTEROL/IPRATROPIUM 2.5MG/0.5MG, 3 ML HHN PRN (05:00)
[2018-05-04] MEDS ORDERED: DOCUSATE 100 MG CAPSULE PO PRN (05:00)
[2018-05-04] MEDS ORDERED: ACETAMINOPHEN 325 MG TABLET PO PRN (05:00)
[2018-05-04] MEDS ORDERED: GUAIFENESIN/DM 200-20MG, 10ML UDC PO PRN (05:00)
[2018-05-04] MEDS ORDERED: DILTIAZEM 125 MG in SODIUM CHLORIDE 0.9% 100 ML IV PRN (05:00)
[2018-05-04] MEDS ORDERED: DILTIAZEM 5 MG/ML, 5ML IVPush PRN (05:00)
[2018-05-04] MEDS ORDERED: hydrALAzine 20 MG/ML, 1ML IVPush PRN (05:00)
[2018-05-04] MEDS ORDERED: POLYETHYLENE GLYCOL 17 GM PACKET PO PRN (05:00)
[2018-05-04 05:34] VITALS: BP 110/70
[2018-05-04] MEDS ORDERED: DEPAKOTE MC SCH (06:00)
[2018-05-04] MEDS ORDERED: ALBUTEROL/IPRATROPIUM 2.5MG/0.5MG, 3 ML NPPB SCH (07:00)
[2018-05-04] MEDS: FUROSEMIDE 40 MG TABLET PO SCH ×2 (09:28→15:21)
[2018-05-04] MEDS: POTASSIUM CHLORIDE 20 MEQ TAB.ER.PRT PO SCH (09:29)
[2018-05-04] MEDS: TAMSULOSIN 0.4 MG CAP.ER.24H PO SCH (09:29)
[2018-05-04] MEDS: METOPROLOL SUCCINATE 100 MG TAB.ER.24H PO SCH (09:29)
[2018-05-04] MEDS: RIVAROXABAN 20 MG TABLET PO SCH (09:29)
[2018-05-04] MEDS: GABAPENTIN 300 MG CAPSULE PO SCH ×3 (09:30→21:00)
[2018-05-04] MEDS: RISPERIDONE 2 MG TABLET PO SCH (09:30)
[2018-05-04] MEDS: DIVALPROEX 250 MG TABLET.DR PO SCH ×3 (09:31→21:00)
[2018-05-04] MEDS: DIGOXIN 0.125 MG TABLET PO SCH (09:32)
[2018-05-04] MEDS ORDERED: LORazepam 2 MG/ML, 1ML ONE (11:20)
[2018-05-04] MEDS ORDERED: LORazepam 2 MG/ML, 1ML IVPush PRN (11:30)
[2018-05-04] MEDS ORDERED: DILTIAZEM 240 MG CAP.ER.24H PO SCH (13:00)
[2018-05-04] MEDS: LORazepam 2 MG/ML, 1ML IVPush PRN (16:38)
[2018-05-04 19:48] VITALS: BP 99/66
[2018-05-05 02:16] VITALS: BP 101/67
[2018-05-05 07:30] VITALS: BP 93/50
[2018-05-05] MEDS: RIVAROXABAN 20 MG TABLET PO SCH (08:33)
[2018-05-05] MEDS: DIVALPROEX 250 MG TABLET.DR PO SCH (08:33)
[2018-05-05] MEDS: FUROSEMIDE 40 MG TABLET PO SCH ×2 (08:33→20:22)
[2018-05-05] MEDS: POTASSIUM CHLORIDE 20 MEQ TAB.ER.PRT PO SCH (08:33)
[2018-05-05] MEDS: GABAPENTIN 300 MG CAPSULE PO SCH ×3 (08:33→20:21)
[2018-05-05] MEDS: DIGOXIN 0.125 MG TABLET PO SCH (08:33)
[2018-05-05] MEDS: RISPERIDONE 2 MG TABLET PO SCH (08:34)
[2018-05-05] MEDS: TAMSULOSIN 0.4 MG CAP.ER.24H PO SCH (08:34)
[2018-05-05 08:47] VITALS: BP 133/73
[2018-05-05] MEDS: METOPROLOL SUCCINATE 100 MG TAB.ER.24H PO SCH (08:47)
[2018-05-05 09:17] LABS: BASOPHILS # (AUTO) 0.01 x10^3/uL (0-0.1); BASOPHILS % (AUTO) 0 % (0-1); EOSINOPHILS # (AUTO) 0.08 x10^3/uL (0-0.4); EOSINOPHILS % (AUTO) 2 % (1-7); LYMPHOCYTES # (AUTO) 1.09 x10^3/uL (1-3.4); LYMPHOCYTES % (AUTO) 22 % (22-44); MD NO; MEAN CORPUSCULAR HEMOGLOBIN 30.4 pg (27.5-34.5); MEAN CORPUSCULAR HGB CONC 32.9 g/dL (33.2-36.2); MEAN CORPUSCULAR VOLUME 92.5 fL (81-97); MONOCYTES # (AUTO) 0.21 x10^3/uL (0.2-0.8); MONOCYTES % (AUTO) 4 % (2-9); NEUTROPHILS # (AUTO) 3.54 x10^3/uL (1.8-6.8); NEUTROPHILS % (AUTO) 72 % (42-75); PLATELET COUNT 168 x10^3/uL (130-400); RED BLOOD COUNT 3.81 x10^6/uL (4.38-5.82); RED CELL DISTRIBUTION WIDTH 17.5 % (9.4-14.8)
[2018-05-05 09:29] LABS: ANION GAP 7 mmol/L (5-15); CALCIUM 8.1 mg/dL (8.5-10.1); CHLORIDE 110 mmol/L (98-107); CREATININE 1.21 mg/dL (0.7-1.3)
[2018-05-05 10:01] LABS: HEMOGLOBIN A1C 5.4 % (4.2-6.3)
[2018-05-05] MEDS: LORazepam 2 MG/ML, 1ML IVPush PRN (14:32)
[2018-05-05 15:00] VITALS: BP 118/74
[2018-05-05] MEDS: CARVEDILOL 6.25 MG TABLET PO SCH (16:35)
[2018-05-05] MEDS ORDERED: LURASIDONE 20 MG TABLET PO SCH (17:00)
[2018-05-05 20:28] VITALS: BP 108/71
[2018-05-06 05:07] VITALS: BP 109/70
[2018-05-06] MEDS: CARVEDILOL 6.25 MG TABLET PO SCH (05:09)
[2018-05-06] MEDS: RIVAROXABAN 20 MG TABLET PO SCH (08:31)
[2018-05-06] MEDS: TAMSULOSIN 0.4 MG CAP.ER.24H PO SCH (08:32)
[2018-05-06] MEDS: DIGOXIN 0.125 MG TABLET PO SCH (08:32)
[2018-05-06] MEDS: POTASSIUM CHLORIDE 20 MEQ TAB.ER.PRT PO SCH (08:32)
[2018-05-06] MEDS: GABAPENTIN 300 MG CAPSULE PO SCH (08:32)
[2018-05-06] MEDS: METOPROLOL SUCCINATE 100 MG TAB.ER.24H PO SCH (08:32)
[2018-05-06] MEDS: FUROSEMIDE 40 MG TABLET PO SCH (08:32)
[2018-05-06] MEDS ORDERED: DIVALPROEX 500 MG TAB.ER.24H PO SCH (09:00)
[2018-05-06] MEDS ORDERED: RISP2TAB3 PO (13:21)
[2018-05-06] MEDS ORDERED: DIGO125T PO (13:21)
[2018-05-06] MEDS ORDERED: RIVA20TA PO (13:21)
[2018-05-06] MEDS ORDERED: POTA20PA25 PO (13:21)
[2018-05-06] MEDS ORDERED: FURO40TA6 PO (13:21)
[2018-05-06] MEDS ORDERED: TAMS0.4C2 PO (13:21)
[2018-05-06] MEDS ORDERED: IPRA4AER INH (13:21)
[2018-05-06] MEDS ORDERED: DILT240C PO (13:21)
[2018-05-06] MEDS ORDERED: GABA300C10 PO (13:21)
[2018-05-06] MEDS ORDERED: METO-95 PO (13:21)
[2018-05-06] MEDS ORDERED: LURA20TA PO (13:23)
[2018-05-06] MEDS ORDERED: DIVA500T4 PO (14:12)
[2018-05-07] MEDS ORDERED: DIVALPROEX 500 MG TAB.ER.24H PO SCH (21:00)
== END 2018-05-06 15:15 | disposition home or self-care (01) | DRG 308 ==
LOC: ED 21:53 → EDIP 05-04 04:10 → 5SO 05-04 05:22
PROVIDERS: ADMIT Hospitalist; ATTEND Hospitalist
DX: I48.2 Chronic atrial fibrillation (principal); E43 Unspecified severe protein-calorie malnutrition; F32.1 Major depressive disorder, single episode, moderate; D68.69 Other thrombophilia; R45.851 Suicidal ideations; Z68.42 Body mass index [BMI] 45.0-49.9, adult; I42.9 Cardiomyopathy, unspecified; N40.0 Benign prostatic hyperplasia without lower urinary tract symptoms; M14.679 Charcot's joint, unspecified ankle and foot; J44.9 Chronic obstructive pulmonary disease, unspecified; I87.8 Other specified disorders of veins; I50.9 Heart failure, unspecified; E11.51 Type 2 diabetes mellitus with diabetic peripheral angiopathy without gangrene; I11.0 Hypertensive heart disease with heart failure; G47.33 Obstructive sleep apnea (adult) (pediatric); G47.00 Insomnia, unspecified; R53.81 Other malaise; F60.9 Personality disorder, unspecified; F29 Unspecified psychosis not due to a substance or known physiological condition; E87.6 Hypokalemia; E66.01 Morbid (severe) obesity due to excess calories; Z91.19 Patient's noncompliance with other medical treatment and regimen; Z91.14 Patient's other noncompliance with medication regimen; Z86.711 Personal history of pulmonary embolism; Z79.4 Long term (current) use of insulin; Z81.1 Family history of alcohol abuse and dependence; Z99.3 Dependence on wheelchair; Z88.0 Allergy status to penicillin
CPT/HCPCS: 36415; 80048; 80162; 80307; 80329; 82040; 83036; 83735; 83880; 84100; 84443; 84484; 85025; 85610; 85730; 93005; 93970; 96372; 96374; 96376; 99285; J2405; J3486; G0480; J2060; J7030

== ENCOUNTER 2018-05-13 06:25 | Inpatient (IN) | payer MEDICAID ==
[~2018-05-13] VITALS: Ht 203.2 cm; Wt 209.8 kg
[~2018-05-13 06:25] MED LIST changes: +DIVA500T4 PO; +LURA20TA PO
[2018-05-13] MEDS ORDERED: FUROSEMIDE 40 MG/4 ML IV ONE (07:00)
[2018-05-13] MEDS ORDERED: SODIUM CHLORIDE 0.9%, 500ML IVBOLUS ONE (07:00)
[2018-05-13] MEDS ORDERED: DIPHENHYDRAMINE 50 MG CAPSULE PO ONE (07:00)
[2018-05-13 07:15] LABS: ALANINE AMINOTRANSFERASE 13 U/L (12-78); ALBUMIN 2.7 g/dL (3.4-5.0); ANION GAP 10 mmol/L (5-15); CHLORIDE 107 mmol/L (98-107); CREATININE 1.36 mg/dL (0.7-1.3)
[2018-05-13 07:19] LABS: ALKALINE PHOSPHATASE 76 U/L (45-117); BILIRUBIN,TOTAL 1.1 mg/dL (0.2-1.0); TOTAL PROTEIN 6.9 g/dL (6.4-8.2); TROPONIN I < 0.015 ng/mL (0.000-0.045)
[2018-05-13 07:29] LABS: BASOPHILS # (AUTO) 0.02 x10^3/uL (0-0.1); BASOPHILS % (AUTO) 0 % (0-1); EOSINOPHILS # (AUTO) 0.01 x10^3/uL (0-0.4); EOSINOPHILS % (AUTO) 0 % (1-7); LYMPHOCYTES # (AUTO) 0.98 x10^3/uL (1-3.4); LYMPHOCYTES % (AUTO) 12 % (22-44); MD NO; MEAN CORPUSCULAR HEMOGLOBIN 30.8 pg (27.5-34.5); MEAN CORPUSCULAR HGB CONC 33.1 g/dL (33.2-36.2); MEAN CORPUSCULAR VOLUME 93.1 fL (81-97); MEAN PLATELET VOLUME 8.2 fL (7.4-10.4); MONOCYTES # (AUTO) 0.28 x10^3/uL (0.2-0.8); MONOCYTES % (AUTO) 3 % (2-9); NEUTROPHILS # (AUTO) 7.04 x10^3/uL (1.8-6.8); NEUTROPHILS % (AUTO) 85 % (42-75); PLATELET COUNT 229 x10^3/uL (130-400); RED BLOOD COUNT 4.23 x10^6/uL (4.38-5.82); RED CELL DISTRIBUTION WIDTH 18.3 % (9.4-14.8)
[2018-05-13] MEDS ORDERED: ONDANSETRON 2MG/ML, 2ML ONE (07:50)
[2018-05-13] MEDS ORDERED: DIGOXIN 0.25 MG/ML, 2ML ONE (07:50)
[2018-05-13] MEDS ORDERED: VERAPAMIL 2.5 MG/ML, 2ML ONE ×3 (07:50→09:24)
[2018-05-13] MEDS ORDERED: DIPHENHYDRAMINE 25 MG CAPSULE ONE (07:50)
[2018-05-13] MEDS ORDERED: FUROSEMIDE 20 MG/2 ML ONE (07:51)
[2018-05-13] MEDS ORDERED: VERAPAMIL 2.5 MG/ML, 2ML IVPush ONE ×3 (08:00→09:30)
[2018-05-13 08:06] LABS: INTERNATIONAL NORMALIZED RATIO 1.1 (0.93-1.1); PROTHROMBIN TIME 11.4 Seconds (9.6-11.5)
[2018-05-13] MEDS ORDERED: DIGOXIN 0.25 MG/ML, 2ML IVPush ONE (08:30)
[2018-05-13] MEDS ORDERED: ONDANSETRON 2MG/ML, 2ML IVPush ONE (08:30)
[2018-05-13] MEDS ORDERED: VERAPAMIL 50 MG in SODIUM CHLORIDE 0.9% 80 ML IV SCH (10:00)
[2018-05-13 10:01] LABS: MICROSCOPIC NOT IND
[2018-05-13 10:13] LABS: CULTURE INDICATED? NO
[2018-05-13] MEDS ORDERED: ONDANSETRON ODT 4 MG PO PRN (11:00)
[2018-05-13] MEDS ORDERED: POLYETHYLENE GLYCOL 17 GM PACKET PO PRN (11:00)
[2018-05-13] MEDS ORDERED: ONDANSETRON 2MG/ML, 2ML IVPush PRN (11:00)
[2018-05-13] MEDS ORDERED: PROMETHAZINE 25 MG/ML, 1ML IM PRN (11:00)
[2018-05-13] MEDS ORDERED: ACETAMINOPHEN 500 MG TABLET PO PRN (11:00)
[2018-05-13] MEDS ORDERED: BISACODYL 10 MG SUPP PR PRN (11:00)
[2018-05-13] MEDS ORDERED: LABETALOL 5MG/ML, 20ML IVPush PRN (11:00)
[2018-05-13] MEDS ORDERED: DOCUSATE 100 MG CAPSULE PO PRN (11:00)
[2018-05-13] MEDS ORDERED: ACETAMINOPHEN 325 MG TABLET PO PRN (11:00)
[2018-05-13] MEDS ORDERED: hydrALAzine 20 MG/ML, 1ML IVPush PRN (11:00)
[2018-05-13 11:22] LABS: FREE T4 (FREE THYROXINE) 1.05 ng/dL (0.76-1.46); THYROID STIMULATING HORMONE 4.48 mIU/L (0.358-3.740)
[2018-05-13 11:49] VITALS: BP 90/63
[2018-05-13 12:04] LABS: HEMOGLOBIN A1C 5.7 % (4.2-6.3)
[2018-05-13] MEDS ORDERED: ALBUTEROL/IPRATROPIUM 2.5MG/0.5MG, 3 ML NPPB PRN (12:30)
[2018-05-13] MEDS: TAMSULOSIN 0.4 MG CAP.ER.24H PO SCH (13:28)
[2018-05-13] MEDS: RIVAROXABAN 20 MG TABLET PO SCH (13:28)
[2018-05-13 17:35] VITALS: BP 110/70
[2018-05-13] MEDS: GABAPENTIN 300 MG CAPSULE PO SCH ×2 (18:33→21:22)
[2018-05-13] MEDS: METOPROLOL TARTRATE 25 MG TABLET PO SCH ×2 (18:33→21:22)
[2018-05-13 20:02] VITALS: BP 103/60
[2018-05-13] MEDS: LURASIDONE 20 MG TABLET PO SCH (21:22)
[2018-05-13] MEDS: DIVALPROEX 500 MG TAB.ER.24H PO SCH (21:23)
[2018-05-13] MEDS: FUROSEMIDE 40 MG TABLET PO SCH (21:23)
[2018-05-14 03:21] VITALS: BP 102/64
[2018-05-14] MEDS: METOPROLOL TARTRATE 25 MG TABLET PO SCH ×4 (03:23→21:41)
[2018-05-14 07:47] VITALS: BP 107/65
[2018-05-14] MEDS: TAMSULOSIN 0.4 MG CAP.ER.24H PO SCH (09:59)
[2018-05-14] MEDS: FUROSEMIDE 40 MG TABLET PO SCH ×2 (09:59→21:41)
[2018-05-14] MEDS: GABAPENTIN 300 MG CAPSULE PO SCH ×3 (09:59→21:41)
[2018-05-14] MEDS: POTASSIUM CHLORIDE 20 MEQ TAB.ER.PRT PO SCH (09:59)
[2018-05-14] MEDS: RIVAROXABAN 20 MG TABLET PO SCH (09:59)
[2018-05-14 10:26] LABS: BASOPHILS # (AUTO) 0.01 x10^3/uL (0-0.1); BASOPHILS % (AUTO) 0 % (0-1); EOSINOPHILS # (AUTO) 0.14 x10^3/uL (0-0.4); EOSINOPHILS % (AUTO) 3 % (1-7); LYMPHOCYTES # (AUTO) 1.18 x10^3/uL (1-3.4); LYMPHOCYTES % (AUTO) 26 % (22-44); MD NO; MEAN CORPUSCULAR HEMOGLOBIN 31.6 pg (27.5-34.5); MEAN CORPUSCULAR HGB CONC 33.9 g/dL (33.2-36.2); MEAN CORPUSCULAR VOLUME 93.1 fL (81-97); MEAN PLATELET VOLUME 7.7 fL (7.4-10.4); MONOCYTES # (AUTO) 0.31 x10^3/uL (0.2-0.8); MONOCYTES % (AUTO) 7 % (2-9); NEUTROPHILS # (AUTO) 2.83 x10^3/uL (1.8-6.8); NEUTROPHILS % (AUTO) 63 % (42-75); PLATELET COUNT 176 x10^3/uL (130-400); RED BLOOD COUNT 3.55 x10^6/uL (4.38-5.82); RED CELL DISTRIBUTION WIDTH 17.9 % (9.4-14.8)
[2018-05-14 10:34] LABS: ALANINE AMINOTRANSFERASE 11 U/L (12-78); ALBUMIN 2.5 g/dL (3.4-5.0); ANION GAP 6 mmol/L (5-15); CALCIUM 8.3 mg/dL (8.5-10.1); CHLORIDE 106 mmol/L (98-107)
[2018-05-14 10:37] LABS: ALKALINE PHOSPHATASE 71 U/L (45-117); BILIRUBIN,TOTAL 0.7 mg/dL (0.2-1.0); CHOL/HDL RATIO 2.6; CHOLESTEROL, TOTAL 111 mg/dL (140-239); CREATININE 1.08 mg/dL (0.7-1.3); HDL CHOL % 39 % (26-37); HDL CHOLESTEROL (DIRECT) 43 mg/dL (40-60); LDL CHOLESTEROL,CALCULATED 58 mg/dL (54-169); LDL/HDL RATIO 1.3 (0.5-3.0); TOTAL PROTEIN 6.8 g/dL (6.4-8.2); TRIGLYCERIDES 49 mg/dL (50-200); VLDL CHOLESTEROL 10 mg/dL (0-25)
[2018-05-14] MEDS: GUAIFENESIN/DM 100-10MG, 5ML UDC PO PRN (11:32)
[2018-05-14 12:19] VITALS: BP 97/65
[2018-05-14] MEDS: DIGOXIN 0.25 MG TABLET PO SCH (17:00)
[2018-05-14 20:11] VITALS: BP 109/67
[2018-05-14] MEDS: LURASIDONE 20 MG TABLET PO SCH (21:40)
[2018-05-14] MEDS: DIVALPROEX 500 MG TAB.ER.24H PO SCH (21:40)
[2018-05-15 00:43] VITALS: BP 98/65
[2018-05-15 02:36] VITALS: BP 122/79
[2018-05-15] MEDS: METOPROLOL TARTRATE 25 MG TABLET PO SCH ×2 (02:45→08:13)
[2018-05-15] MEDS: GUAIFENESIN/DM 100-10MG, 5ML UDC PO PRN ×2 (02:50→08:13)
[2018-05-15 08:01] VITALS: BP 115/77
[2018-05-15] MEDS: GABAPENTIN 300 MG CAPSULE PO SCH (08:12)
[2018-05-15] MEDS: DIGOXIN 0.25 MG TABLET PO SCH (08:12)
[2018-05-15] MEDS: POTASSIUM CHLORIDE 20 MEQ TAB.ER.PRT PO SCH (08:12)
[2018-05-15] MEDS: TAMSULOSIN 0.4 MG CAP.ER.24H PO SCH (08:13)
[2018-05-15] MEDS: RIVAROXABAN 20 MG TABLET PO SCH (08:13)
[2018-05-15] MEDS: FUROSEMIDE 40 MG TABLET PO SCH (08:13)
[2018-05-15] MEDS ORDERED: DIGO250T PO (11:08)
[2018-05-15] MEDS ORDERED: POTA20TA6 PO (11:08)
[2018-05-15] MEDS ORDERED: METO50TA82 PO (11:08)
[2018-05-15] MEDS ORDERED: LOSA25TA2 PO (11:29)
[2018-05-15] MEDS ORDERED: METOPROLOL TARTRATE 25 MG TABLET PO ONE (12:00)
== END 2018-05-15 15:12 | disposition home or self-care (01) | DRG 291 ==
LOC: ED 07:45 → EDIP 10:44 → 5SO 11:44
PROVIDERS: ADMIT Internal Medicine; ATTEND Internal Medicine
DX: I11.0 Hypertensive heart disease with heart failure (principal); J96.21 Acute and chronic respiratory failure with hypoxia; N17.0 Acute kidney failure with tubular necrosis; D68.69 Other thrombophilia; Z68.43 Body mass index [BMI] 50.0-59.9, adult; E87.2 Acidosis; I50.23 Acute on chronic systolic (congestive) heart failure; I42.9 Cardiomyopathy, unspecified; E11.51 Type 2 diabetes mellitus with diabetic peripheral angiopathy without gangrene; E66.01 Morbid (severe) obesity due to excess calories; Z88.0 Allergy status to penicillin; Z91.19 Patient's noncompliance with other medical treatment and regimen; F29 Unspecified psychosis not due to a substance or known physiological condition; F31.9 Bipolar disorder, unspecified; F60.9 Personality disorder, unspecified; G47.33 Obstructive sleep apnea (adult) (pediatric); I25.2 Old myocardial infarction; I87.2 Venous insufficiency (chronic) (peripheral); I87.8 Other specified disorders of veins; J44.9 Chronic obstructive pulmonary disease, unspecified; N40.0 Benign prostatic hyperplasia without lower urinary tract symptoms; Z59.0 Homelessness; Z79.01 Long term (current) use of anticoagulants; Z79.899 Other long term (current) drug therapy; Z83.3 Family history of diabetes mellitus; Z86.711 Personal history of pulmonary embolism; Z91.14 Patient's other noncompliance with medication regimen; Z99.3 Dependence on wheelchair; I48.91 Unspecified atrial fibrillation
CPT/HCPCS: 36415; 36600; 99291; J7620; 71045; 80053; 80061; 80162; 81003; 82803; 83036; 83605; 83735; 83880; 84439; 84443; 84484; 85025; 85610; 87040; 93005; 93306; 94640; 96361; 96365; 96375; 96376; J1940; J2405; J1160; J7040

== ENCOUNTER → 2018-05-20 | Outpatient (CLI) | payer MEDICAID ==
[~2018-05-20] MED LIST changes: +CEPH-376 PO; +DIGO250T PO; +LOSA25TA2 PO; +ONDA4TAB10 PO; +POTA20TA6 PO; +SENN1TAB7 PO; -SPIR25TA3 PO; +SPIR25TA5 PO
== END | disposition home or self-care (01) ==
LOC: WOUND 07:39
PROVIDERS: ATTEND Nurse Practitioner Family
DX: I87.331 Chronic venous hypertension (idiopathic) with ulcer and inflammation of right lower extremity (principal); L97.811 Non-pressure chronic ulcer of other part of right lower leg limited to breakdown of skin; E66.01 Morbid (severe) obesity due to excess calories; G47.33 Obstructive sleep apnea (adult) (pediatric); I42.9 Cardiomyopathy, unspecified; E11.51 Type 2 diabetes mellitus with diabetic peripheral angiopathy without gangrene; E11.22 Type 2 diabetes mellitus with diabetic chronic kidney disease; I13.0 Hypertensive heart and chronic kidney disease with heart failure and stage 1 through stage 4 chronic kidney disease, or unspecified chronic kidney disease; N18.9 Chronic kidney disease, unspecified; I50.23 Acute on chronic systolic (congestive) heart failure; M19.079 Primary osteoarthritis, unspecified ankle and foot; J44.9 Chronic obstructive pulmonary disease, unspecified; I25.2 Old myocardial infarction; E43 Unspecified severe protein-calorie malnutrition; G47.00 Insomnia, unspecified; I48.2 Chronic atrial fibrillation; F31.9 Bipolar disorder, unspecified; Z68.43 Body mass index [BMI] 50.0-59.9, adult; Z86.711 Personal history of pulmonary embolism; Z79.899 Other long term (current) drug therapy; Z79.4 Long term (current) use of insulin
CPT/HCPCS: 97597; 99215

== ENCOUNTER 2018-05-27 15:17 | Inpatient (IN) | payer MEDICAID ==
[~2018-05-27] VITALS: Ht 203.2 cm; Wt 183.4 kg
[~2018-05-27 15:17] MED LIST changes: -CEPH-376 PO; -ONDA4TAB10 PO; -SENN1TAB7 PO
[2018-05-27] MEDS ORDERED: ACETAMINOPHEN 500 MG TABLET ONE (15:20)
[2018-05-27] MEDS ORDERED: SODIUM CHLORIDE 0.9% 1,000ML IVBOLUS ONE (15:30)
[2018-05-27] MEDS ORDERED: SODIUM CHLORIDE FLUSH 10ML SYR IVF ONE (15:30)
[2018-05-27] MEDS ORDERED: PLEASE ENTER HEIGHT AND WEIGHT MC SCH (15:30)
[2018-05-27] MEDS ORDERED: ACETAMINOPHEN 500 MG TABLET PO ONE (15:30)
[2018-05-27] MEDS ORDERED: ASPIRIN 81 MG TABLET CHEW PO ONE (15:30)
[2018-05-27 16:03] LABS: MEAN CORPUSCULAR HEMOGLOBIN 31.4 pg (27.5-34.5); MEAN CORPUSCULAR HGB CONC 33.6 g/dL (33.2-36.2); MEAN CORPUSCULAR VOLUME 93.6 fL (81-97); MEAN PLATELET VOLUME 8.2 fL (7.4-10.4); PLATELET COUNT 208 x10^3/uL (130-400); RED BLOOD COUNT 3.96 x10^6/uL (4.38-5.82); RED CELL DISTRIBUTION WIDTH 18.5 % (9.4-14.8)
[2018-05-27] MEDS ORDERED: ASPIRIN 81 MG TABLET CHEW ONE (16:25)
[2018-05-27 16:41] LABS: MD YES
[2018-05-27 16:43] LABS: BANDS%(MANUAL) 6 % (0-7); LYMPH#(MANUAL) 0.67 x10^3/uL (1-3.4); LYMPHS% (MANUAL) 5 % (22-44); MONOS#(MANUAL) 0.27 x10^3/uL (0.3-2.7); MONOS% (MANUAL) 2 % (2-9); SEG#(MANUAL) 11.66 x10^3/uL (1.8-6.8); SEGS% (MANUAL) 87 % (42-75)
[2018-05-27 16:44] LABS: <PLATELET ESTIMATE> ADEQUATE; <PLT MORPHOLOGY> NORMAL PLT MORPH; OVALOCYTES 1+; POLYCHROMASIA 1+
[2018-05-27 16:46] LABS: ANISOCYTOSIS 1+
[2018-05-27] MEDS ORDERED: IBUPROFEN 200 MG TABLET ONE (16:52)
[2018-05-27 16:54] LABS: ALBUMIN 2.8 g/dL (3.4-5.0); ANION GAP 10 mmol/L (5-15); CHLORIDE 111 mmol/L (98-107)
[2018-05-27] MEDS ORDERED: VERAPAMIL 2.5 MG/ML, 2ML ONE ×2 (16:55→17:35)
[2018-05-27] MEDS ORDERED: IBUPROFEN 200 MG TABLET PO ONE (17:00)
[2018-05-27] MEDS ORDERED: VERAPAMIL 2.5 MG/ML, 2ML IVPush ONE ×2 (17:00→18:00)
[2018-05-27] MEDS ORDERED: DILTIAZEM 5 MG/ML, 5ML IVPush ONE (17:00)
[2018-05-27 17:01] LABS: ALANINE AMINOTRANSFERASE 17 U/L (12-78); ALKALINE PHOSPHATASE 78 U/L (45-117); BILIRUBIN,TOTAL 0.8 mg/dL (0.2-1.0); CREATININE 1.57 mg/dL (0.7-1.3); T4 (THYROXINE) 7.5 mcg/dL (4.5-12.1); TOTAL PROTEIN 7.7 g/dL (6.4-8.2); TROPONIN I 0.024 ng/mL (0.000-0.045)
[2018-05-27 17:37] LABS: CULTURE INDICATED? YES; MICROSCOPIC INDICATED
[2018-05-27 17:48] LABS: AMPHETAMINE SCREEN, URINE Negative (Negative); BARBITURATE SCREEN, URINE Negative (Negative); BENZODIAZEPINE SCREEN, URINE Negative (Negative); CANNABINOID SCREEN, URINE Negative (Negative); COCAINE SCREEN, URINE Negative (Negative); METHADONE SCREEN, URINE Negative (Negative)
[2018-05-27 17:50] LABS: D-DIMER 0.93 ug/mlFEU (0.00-0.52); INTERNATIONAL NORMALIZED RATIO 1.3 (0.93-1.1); PROTHROMBIN TIME 13.3 Seconds (9.6-11.5)
[2018-05-27] MEDS ORDERED: VANCOMYCIN PER PHARMACY MC PRN ×2 (18:00→21:00)
[2018-05-27] MEDS ORDERED: CEFTRIAXONE 1,000 MG in SODIUM CHLORIDE 0.9% 50 ML IV ONE (18:00)
[2018-05-27 18:18] LABS: OPIATE SCREEN, URINE Negative (Negative)
[2018-05-27] MEDS ORDERED: VANCOMYCIN 2,000 MG in SODIUM CHLORIDE 0.9% 500 ML IV ONE (18:30)
[2018-05-27] MEDS ORDERED: MAGNESIUM SULFATE PMX 2GM/50ML 50 ML IV ONE (19:00)
[2018-05-27] MEDS: SODIUM CHLORIDE 0.9% 1,000 ML IV SCH ×2 (19:02→22:19)
[2018-05-27] MEDS ORDERED: POTASSIUM CHLORIDE 20 MEQ TAB.ER.PRT ONE (19:15)
[2018-05-27] MEDS ORDERED: METOPROLOL TARTRATE 25 MG TABLET ONE (19:15)
[2018-05-27] MEDS ORDERED: POLYETHYLENE GLYCOL 17 GM PACKET PO PRN (19:30)
[2018-05-27] MEDS ORDERED: BISACODYL 10 MG SUPP PR PRN (19:30)
[2018-05-27] MEDS ORDERED: ONDANSETRON 2MG/ML, 2ML IVPush PRN (19:30)
[2018-05-27] MEDS ORDERED: POTASSIUM CHLORIDE 20 MEQ TAB.ER.PRT PO ONE (19:30)
[2018-05-27] MEDS ORDERED: DIGOXIN 0.25 MG/ML, 2ML IVPush ONE ×2 (19:30→21:00)
[2018-05-27] MEDS: METOPROLOL TARTRATE 50 MG TABLET PO SCH (19:34)
[2018-05-27] MEDS ORDERED: NOREPINEPHRINE 4 MG in SODIUM CHLORIDE 0.9% 246 ML IV PRN ×2 (20:45→22:30)
[2018-05-27] MEDS ORDERED: DIGOXIN 0.25 MG/ML, 2ML ONE (20:48)
[2018-05-27] MEDS: DIVALPROEX 500 MG TAB.ER.24H PO SCH (21:00)
[2018-05-27] MEDS: GABAPENTIN 300 MG CAPSULE PO SCH (21:00)
[2018-05-27] MEDS: FUROSEMIDE 40 MG TABLET PO SCH (21:00)
[2018-05-27] MEDS ORDERED: SODIUM CHLORIDE 0.9%, 500ML IVBOLUS ONE (21:00)
[2018-05-27] MEDS ORDERED: LIDOCAINE-MPF 1%, 2ML ONE (21:10)
[2018-05-27] MEDS ORDERED: VASOPRESSIN 100 UNIT in SODIUM CHLORIDE 0.9% 495 ML IV PRN (21:30)
[2018-05-27] MEDS ORDERED: LATUDA MC SCH (22:30)
[2018-05-27] MEDS: ALBUTEROL/IPRATROPIUM 2.5MG/0.5MG, 3 ML NPPB PRN (23:26)
[2018-05-27 23:30] VITALS: BP 84/48
[2018-05-28] MEDS ORDERED: SODIUM CHLORIDE 0.9% 1,000ML IVBOLUS ONE (00:30)
[2018-05-28] MEDS ORDERED: NOREPINEPHRINE 8 MG in SODIUM CHLORIDE 0.9% 242 ML IV PRN (02:30)
[2018-05-28 04:30] VITALS: BP 126/75
[2018-05-28 04:39] LABS: MEAN CORPUSCULAR HEMOGLOBIN 31.6 pg (27.5-34.5); MEAN CORPUSCULAR HGB CONC 33.7 g/dL (33.2-36.2); MEAN CORPUSCULAR VOLUME 93.9 fL (81-97); PLATELET COUNT 199 x10^3/uL (130-400); RED BLOOD COUNT 4.27 x10^6/uL (4.38-5.82)
[2018-05-28 04:50] LABS: ALBUMIN 2.4 g/dL (3.4-5.0); ANION GAP 11 mmol/L (5-15); CALCIUM 7.5 mg/dL (8.5-10.1); CHLORIDE 110 mmol/L (98-107)
[2018-05-28 04:56] LABS: ALANINE AMINOTRANSFERASE 16 U/L (12-78); ALKALINE PHOSPHATASE 65 U/L (45-117); BILIRUBIN,TOTAL 1.1 mg/dL (0.2-1.0); CREATININE 1.64 mg/dL (0.7-1.3); TOTAL PROTEIN 6.9 g/dL (6.4-8.2); TROPONIN I 0.053 ng/mL (0.000-0.045)
[2018-05-28 05:20] LABS: MD YES
[2018-05-28 05:22] LABS: ANISOCYTOSIS 1+; BAND#(MANUAL) 3.01 x10^3/uL; BANDS%(MANUAL) 17 % (0-7); EOS#(MANUAL) 0.18 x10^3/uL (0.0-0.4); EOS% (MANUAL) 1 % (1-7); LYMPH#(MANUAL) 0.71 x10^3/uL (1-3.4); LYMPHS% (MANUAL) 4 % (22-44); MONOS#(MANUAL) 0.71 x10^3/uL (0.3-2.7); MONOS% (MANUAL) 4 % (2-9); POLYCHROMASIA 1+; SEGS% (MANUAL) 74 % (42-75)
[2018-05-28 05:23] LABS: <PLATELET ESTIMATE> ADEQUATE; <PLT MORPHOLOGY> NORMAL PLT MORPH
[2018-05-28] MEDS: TAMSULOSIN 0.4 MG CAP.ER.24H PO SCH (08:47)
[2018-05-28] MEDS: SENNA/DOCUSATE TABLET PO SCH (08:47)
[2018-05-28] MEDS: RIVAROXABAN 20 MG TABLET PO SCH (08:47)
[2018-05-28] MEDS: FUROSEMIDE 40 MG TABLET PO SCH ×2 (08:48→20:58)
[2018-05-28] MEDS: ACETAMINOPHEN 325 MG TABLET PO PRN ×2 (08:48→20:57)
[2018-05-28] MEDS: DIGOXIN 0.25 MG TABLET PO SCH (08:48)
[2018-05-28] MEDS: GABAPENTIN 300 MG CAPSULE PO SCH ×3 (08:48→20:57)
[2018-05-28] MEDS: METOPROLOL TARTRATE 50 MG TABLET PO SCH (08:49)
[2018-05-28] MEDS: LURASIDONE 20 MG TABLET PO SCH (08:56)
[2018-05-28] MEDS ORDERED: POTASSIUM CHLORIDE 20 MEQ TAB.ER.PRT PO SCH (09:00)
[2018-05-28] MEDS ORDERED: LOSARTAN 25MG TABLET PO SCH (09:00)
[2018-05-28] MEDS: ALBUTEROL/IPRATROPIUM 2.5MG/0.5MG, 3 ML NPPB SCH ×3 (11:09→20:00)
[2018-05-28 16:57] VITALS: BP 96/60
[2018-05-28] MEDS: VANCOMYCIN 2,000 MG in SODIUM CHLORIDE 0.9% 500 ML IV SCH (17:14)
[2018-05-28] MEDS ORDERED: CEFTRIAXONE 1,000 MG in SODIUM CHLORIDE 0.9% 50 ML IV SCH (18:00)
[2018-05-28] MEDS: CEFTRIAXONE 2,000 MG in SODIUM CHLORIDE 0.9% 50 ML IV SCH (18:21)
[2018-05-28] MEDS ORDERED: SODIUM CHLORIDE 0.9% 1,000 ML IV SCH (19:02)
[2018-05-28 20:50] VITALS: BP 113/48
[2018-05-28] MEDS: DIVALPROEX 500 MG TAB.ER.24H PO SCH (20:57)
[2018-05-28] MEDS: METOPROLOL TARTRATE 25 MG TABLET PO SCH (20:58)
[2018-05-29 01:20] VITALS: BP 92/56
[2018-05-29] MEDS: VANCOMYCIN 2,000 MG in SODIUM CHLORIDE 0.9% 500 ML IV SCH ×2 (04:15→16:41)
[2018-05-29 06:17] LABS: BASOPHILS # (AUTO) 0.01 x10^3/uL (0-0.1); BASOPHILS % (AUTO) 0 % (0-1); EOSINOPHILS # (AUTO) 0.15 x10^3/uL (0-0.4); EOSINOPHILS % (AUTO) 2 % (1-7); LYMPHOCYTES # (AUTO) 0.71 x10^3/uL (1-3.4); LYMPHOCYTES % (AUTO) 9 % (22-44); MD NO; MEAN CORPUSCULAR HEMOGLOBIN 31.9 pg (27.5-34.5); MEAN CORPUSCULAR HGB CONC 33.8 g/dL (33.2-36.2); MEAN CORPUSCULAR VOLUME 94.5 fL (81-97); MEAN PLATELET VOLUME 7.3 fL (7.4-10.4); MONOCYTES # (AUTO) 0.44 x10^3/uL (0.2-0.8); MONOCYTES % (AUTO) 5 % (2-9); NEUTROPHILS # (AUTO) 6.72 x10^3/uL (1.8-6.8); NEUTROPHILS % (AUTO) 84 % (42-75); PLATELET COUNT 141 x10^3/uL (130-400); RED BLOOD COUNT 3.28 x10^6/uL (4.38-5.82); RED CELL DISTRIBUTION WIDTH 18.8 % (9.4-14.8)
[2018-05-29 06:27] LABS: ALBUMIN 2.3 g/dL (3.4-5.0); ANION GAP 8 mmol/L (5-15); CALCIUM 7.6 mg/dL (8.5-10.1); CHLORIDE 108 mmol/L (98-107)
[2018-05-29] MEDS: ALBUTEROL/IPRATROPIUM 2.5MG/0.5MG, 3 ML NPPB SCH (06:29)
[2018-05-29 06:30] LABS: ALANINE AMINOTRANSFERASE 20 U/L (12-78); ALKALINE PHOSPHATASE 58 U/L (45-117); BILIRUBIN,TOTAL 0.6 mg/dL (0.2-1.0); CREATININE 1.09 mg/dL (0.7-1.3); TOTAL PROTEIN 6.5 g/dL (6.4-8.2)
[2018-05-29 07:49] VITALS: BP 96/59
[2018-05-29] MEDS: METOPROLOL TARTRATE 25 MG TABLET PO SCH ×2 (09:22→21:09)
[2018-05-29] MEDS: SENNA/DOCUSATE TABLET PO SCH (09:22)
[2018-05-29] MEDS: TAMSULOSIN 0.4 MG CAP.ER.24H PO SCH (09:22)
[2018-05-29] MEDS: LURASIDONE 20 MG TABLET PO SCH (09:22)
[2018-05-29] MEDS: RIVAROXABAN 20 MG TABLET PO SCH (09:23)
[2018-05-29] MEDS: GABAPENTIN 300 MG CAPSULE PO SCH ×3 (09:23→21:09)
[2018-05-29] MEDS: FUROSEMIDE 40 MG TABLET PO SCH (09:23)
[2018-05-29] MEDS: DIGOXIN 0.25 MG TABLET PO SCH (09:23)
[2018-05-29] MEDS: ACETAMINOPHEN 325 MG TABLET PO PRN ×2 (09:49→21:09)
[2018-05-29] MEDS ORDERED: FUROSEMIDE 40 MG TABLET PO ONE (11:30)
[2018-05-29] MEDS ORDERED: FUROSEMIDE 40 MG/4 ML IV ONE (12:00)
[2018-05-29 14:21] VITALS: BP 99/63
[2018-05-29] MEDS ORDERED: POTASSIUM CHLORIDE 20 MEQ TAB.ER.PRT PO ONE (17:00)
[2018-05-29] MEDS: FUROSEMIDE 40 MG/4 ML IV SCH (17:55)
[2018-05-29] MEDS: CEFTRIAXONE 2,000 MG in SODIUM CHLORIDE 0.9% 50 ML IV SCH (18:58)
[2018-05-29 20:00] VITALS: BP 116/78
[2018-05-29] MEDS: DIVALPROEX 500 MG TAB.ER.24H PO SCH (21:09)
[2018-05-30 01:50] VITALS: BP 113/75
[2018-05-30] MEDS: VANCOMYCIN 2,000 MG in SODIUM CHLORIDE 0.9% 500 ML IV SCH ×2 (04:42→17:17)
[2018-05-30 05:47] LABS: ALBUMIN 2.2 g/dL (3.4-5.0); ANION GAP 7 mmol/L (5-15); CALCIUM 7.7 mg/dL (8.5-10.1); CHLORIDE 104 mmol/L (98-107)
[2018-05-30 05:49] LABS: MEAN CORPUSCULAR HEMOGLOBIN 30.9 pg (27.5-34.5); MEAN CORPUSCULAR VOLUME 93.4 fL (81-97); MEAN PLATELET VOLUME 8.3 fL (7.4-10.4); PLATELET COUNT 157 x10^3/uL (130-400); RED BLOOD COUNT 3.33 x10^6/uL (4.38-5.82); RED CELL DISTRIBUTION WIDTH 19.1 % (9.4-14.8)
[2018-05-30 05:51] LABS: ALANINE AMINOTRANSFERASE 25 U/L (12-78); ALKALINE PHOSPHATASE 72 U/L (45-117); BILIRUBIN,TOTAL 0.4 mg/dL (0.2-1.0); CREATININE 0.97 mg/dL (0.7-1.3); TOTAL PROTEIN 6.9 g/dL (6.4-8.2)
[2018-05-30 06:19] LABS: BASOPHILS # (AUTO) 0.02 x10^3/uL (0-0.1); BASOPHILS % (AUTO) 0 % (0-1); EOSINOPHILS # (AUTO) 0.29 x10^3/uL (0-0.4); EOSINOPHILS % (AUTO) 5 % (1-7); LYMPHOCYTES # (AUTO) 0.99 x10^3/uL (1-3.4); LYMPHOCYTES % (AUTO) 18 % (22-44); MD SCAN; MONOCYTES # (AUTO) 0.45 x10^3/uL (0.2-0.8); MONOCYTES % (AUTO) 8 % (2-9); NEUTROPHILS # (AUTO) 3.72 x10^3/uL (1.8-6.8); NEUTROPHILS % (AUTO) 68 % (42-75)
[2018-05-30] MEDS: FUROSEMIDE 40 MG/4 ML IV SCH ×2 (08:42→17:18)
[2018-05-30 08:59] VITALS: BP 125/79
[2018-05-30] MEDS: RIVAROXABAN 20 MG TABLET PO SCH (10:27)
[2018-05-30] MEDS: TAMSULOSIN 0.4 MG CAP.ER.24H PO SCH (10:27)
[2018-05-30] MEDS: SENNA/DOCUSATE TABLET PO SCH (10:27)
[2018-05-30] MEDS: DIGOXIN 0.25 MG TABLET PO SCH (10:27)
[2018-05-30] MEDS: METOPROLOL TARTRATE 25 MG TABLET PO SCH ×2 (10:27→20:52)
[2018-05-30] MEDS: LURASIDONE 20 MG TABLET PO SCH (10:27)
[2018-05-30] MEDS: GABAPENTIN 300 MG CAPSULE PO SCH ×3 (10:27→20:52)
[2018-05-30 13:19] VITALS: BP 109/68
[2018-05-30 19:05] VITALS: BP 127/75
[2018-05-30] MEDS: CEFTRIAXONE 2,000 MG in SODIUM CHLORIDE 0.9% 50 ML IV SCH (20:51)
[2018-05-30] MEDS: DIVALPROEX 500 MG TAB.ER.24H PO SCH (20:52)
[2018-05-30] MEDS: ALBUTEROL/IPRATROPIUM 2.5MG/0.5MG, 3 ML NPPB PRN (21:10)
[2018-05-31] VITALS (7 sets, daily range): BP systolic 109–145; BP diastolic 53–94
[2018-05-31] MEDS: ALBUTEROL/IPRATROPIUM 2.5MG/0.5MG, 3 ML NPPB PRN ×2 (04:00→04:14)
[2018-05-31] MEDS: VANCOMYCIN 2,000 MG in SODIUM CHLORIDE 0.9% 500 ML IV SCH (04:41)
[2018-05-31] MEDS: FUROSEMIDE 40 MG/4 ML IV SCH (10:27)
[2018-05-31] MEDS: METOPROLOL TARTRATE 25 MG TABLET PO SCH ×2 (10:27→20:54)
[2018-05-31] MEDS: SENNA/DOCUSATE TABLET PO SCH (10:28)
[2018-05-31] MEDS: RIVAROXABAN 20 MG TABLET PO SCH (10:28)
[2018-05-31] MEDS: GABAPENTIN 300 MG CAPSULE PO SCH ×3 (10:28→20:53)
[2018-05-31] MEDS: LURASIDONE 20 MG TABLET PO SCH (10:28)
[2018-05-31] MEDS: DIGOXIN 0.25 MG TABLET PO SCH (10:28)
[2018-05-31] MEDS: TAMSULOSIN 0.4 MG CAP.ER.24H PO SCH (10:28)
[2018-05-31 16:37] LABS: BASOPHILS # (AUTO) 0.02 x10^3/uL (0-0.1); BASOPHILS % (AUTO) 1 % (0-1); EOSINOPHILS # (AUTO) 0.17 x10^3/uL (0-0.4); EOSINOPHILS % (AUTO) 4 % (1-7); LYMPHOCYTES # (AUTO) 1.26 x10^3/uL (1-3.4); LYMPHOCYTES % (AUTO) 27 % (22-44); MD NO; MEAN CORPUSCULAR HEMOGLOBIN 30.8 pg (27.5-34.5); MEAN CORPUSCULAR HGB CONC 33.3 g/dL (33.2-36.2); MEAN CORPUSCULAR VOLUME 92.6 fL (81-97); MEAN PLATELET VOLUME 7.4 fL (7.4-10.4); MONOCYTES # (AUTO) 0.56 x10^3/uL (0.2-0.8); MONOCYTES % (AUTO) 12 % (2-9); NEUTROPHILS # (AUTO) 2.63 x10^3/uL (1.8-6.8); NEUTROPHILS % (AUTO) 57 % (42-75); PLATELET COUNT 179 x10^3/uL (130-400); RED BLOOD COUNT 3.65 x10^6/uL (4.38-5.82); RED CELL DISTRIBUTION WIDTH 18.1 % (9.4-14.8)
[2018-05-31] MEDS: CEPHALEXIN 500 MG CAPSULE PO SCH ×2 (18:32→20:53)
[2018-05-31] MEDS: FUROSEMIDE 40 MG TABLET PO SCH (18:33)
[2018-05-31] MEDS: DIVALPROEX 500 MG TAB.ER.24H PO SCH (20:53)
[2018-06-01 02:03] VITALS: BP 119/86
[2018-06-01 07:09] VITALS: BP 131/73
[2018-06-01] MEDS: RIVAROXABAN 20 MG TABLET PO SCH (09:58)
[2018-06-01] MEDS: LURASIDONE 20 MG TABLET PO SCH (09:58)
[2018-06-01] MEDS: DIGOXIN 0.25 MG TABLET PO SCH (09:58)
[2018-06-01] MEDS: FUROSEMIDE 40 MG TABLET PO SCH (09:58)
[2018-06-01] MEDS: SENNA/DOCUSATE TABLET PO SCH (09:59)
[2018-06-01] MEDS: GABAPENTIN 300 MG CAPSULE PO SCH (09:59)
[2018-06-01] MEDS: TAMSULOSIN 0.4 MG CAP.ER.24H PO SCH (09:59)
[2018-06-01] MEDS: ACETAMINOPHEN 325 MG TABLET PO PRN (09:59)
[2018-06-01] MEDS: METOPROLOL TARTRATE 25 MG TABLET PO SCH (09:59)
[2018-06-01] MEDS: CEPHALEXIN 500 MG CAPSULE PO SCH (09:59)
[2018-06-01 12:25] VITALS: BP 93/54
[2018-06-01] MEDS ORDERED: GABA300C10 PO (13:19)
[2018-06-01] MEDS ORDERED: DIVA500T4 PO (13:19)
[2018-06-01] MEDS ORDERED: METO50TA82 PO (13:19)
[2018-06-01] MEDS ORDERED: TAMS0.4C2 PO (13:19)
[2018-06-01] MEDS ORDERED: DIGO250T PO (13:19)
[2018-06-01] MEDS ORDERED: LURA20TA PO (13:19)
[2018-06-01] MEDS ORDERED: FURO40TA6 PO (13:19)
[2018-06-01] MEDS ORDERED: ACET-1600 PO (13:19)
[2018-06-01] MEDS ORDERED: SENN1TAB7 PO (13:19)
[2018-06-01] MEDS ORDERED: CEPH-376 PO (13:19)
[2018-06-01] MEDS ORDERED: RIVA20TA PO (13:19)
[2018-06-01] MEDS ORDERED: ONDA4TAB10 PO (13:19)
[2018-06-01] MEDS ORDERED: IPRA4AER INH (13:19)
[2018-06-02] MEDS ORDERED: MULTIVITAMIN 1 TABLET PO SCH (09:00)
== END 2018-06-01 14:07 | disposition home or self-care (01) | DRG 871 ==
LOC: ED 17:50 → EDIP 19:02 → CCU 21:45 → 4EST 05-28 13:58
PROVIDERS: ADMIT Internal Medicine; ATTEND Internal Medicine
PROC: 05HM33Z Insertion of Infusion Device into Right Internal Jugular Vein, Percutaneous Approach (ICD-10-PCS; principal; 2018-05-27)
PROC: B543ZZA Ultrasonography of Right Jugular Veins, Guidance (ICD-10-PCS; 2018-05-27)
DX: A41.9 Sepsis, unspecified organism (principal); J96.20 Acute and chronic respiratory failure, unspecified whether with hypoxia or hypercapnia; E43 Unspecified severe protein-calorie malnutrition; N17.9 Acute kidney failure, unspecified; I13.0 Hypertensive heart and chronic kidney disease with heart failure and stage 1 through stage 4 chronic kidney disease, or unspecified chronic kidney disease; D68.69 Other thrombophilia; I42.9 Cardiomyopathy, unspecified; E87.2 Acidosis; Z68.41 Body mass index [BMI] 40.0-44.9, adult; E11.51 Type 2 diabetes mellitus with diabetic peripheral angiopathy without gangrene; N40.0 Benign prostatic hyperplasia without lower urinary tract symptoms; M19.079 Primary osteoarthritis, unspecified ankle and foot; J44.9 Chronic obstructive pulmonary disease, unspecified; I48.2 Chronic atrial fibrillation; I50.9 Heart failure, unspecified; F31.9 Bipolar disorder, unspecified; G47.33 Obstructive sleep apnea (adult) (pediatric); E66.01 Morbid (severe) obesity due to excess calories; E11.22 Type 2 diabetes mellitus with diabetic chronic kidney disease; E11.621 Type 2 diabetes mellitus with foot ulcer; I27.20 Pulmonary hypertension, unspecified; L97.519 Non-pressure chronic ulcer of other part of right foot with unspecified severity; N18.9 Chronic kidney disease, unspecified; D64.9 Anemia, unspecified; Z91.19 Patient's noncompliance with other medical treatment and regimen; Z86.711 Personal history of pulmonary embolism; Z86.14 Personal history of Methicillin resistant Staphylococcus aureus infection; Z82.49 Family history of ischemic heart disease and other diseases of the circulatory system; Z79.01 Long term (current) use of anticoagulants; Z59.0 Homelessness; Z99.3 Dependence on wheelchair; Z80.1 Family history of malignant neoplasm of trachea, bronchus and lung; Z91.14 Patient's other noncompliance with medication regimen; Z88.0 Allergy status to penicillin
CPT/HCPCS: 36415; 36556; 36600; 73630; 84145; 99291; J7620; 71045; 80053; 80162; 80202; 80307; 81001; 82533; 82803; 83605; 83735; 83880; 84100; 84436; 84439; 84443; 84484; 85025; 85379; 85610; 85730; 87040; 87070; 87077; 87081; 87086; 87147; 87181; 87186; 87205; 93005; 93922; 93970; 94640; 96361; 96374; 96375; 96376; J0696; J1940; J3370; J1160; J3475; J7030; J7040; J7050

== ENCOUNTER 2018-06-09 23:12 | Emergency (ER) | payer MEDICAID ==
[~2018-06-09] VITALS: Ht 203.2 cm; Wt 192.3 kg
[~2018-06-09 23:12] MED LIST changes: +CEPH-376 PO; +ONDA4TAB10 PO; +SENN1TAB7 PO
[2018-06-09 23:41] LABS: BASOPHILS # (AUTO) 0.05 x10^3/uL (0-0.1); BASOPHILS % (AUTO) 1 % (0-1); EOSINOPHILS # (AUTO) 0.21 x10^3/uL (0-0.4); EOSINOPHILS % (AUTO) 4 % (1-7); LYMPHOCYTES # (AUTO) 1.49 x10^3/uL (1-3.4); LYMPHOCYTES % (AUTO) 27 % (22-44); MD NO; MEAN CORPUSCULAR HEMOGLOBIN 30.9 pg (27.5-34.5); MEAN CORPUSCULAR HGB CONC 33.1 g/dL (33.2-36.2); MEAN CORPUSCULAR VOLUME 93.3 fL (81-97); MEAN PLATELET VOLUME 7.1 fL (7.4-10.4); MONOCYTES # (AUTO) 0.46 x10^3/uL (0.2-0.8); MONOCYTES % (AUTO) 8 % (2-9); NEUTROPHILS % (AUTO) 60 % (42-75); PLATELET COUNT 236 x10^3/uL (130-400); RED BLOOD COUNT 3.34 x10^6/uL (4.38-5.82); RED CELL DISTRIBUTION WIDTH 17.6 % (9.4-14.8)
[2018-06-09 23:52] LABS: ALBUMIN 2.4 g/dL (3.4-5.0); ANION GAP 4 mmol/L (5-15); CALCIUM 7.8 mg/dL (8.5-10.1); CHLORIDE 107 mmol/L (98-107)
[2018-06-09 23:57] LABS: ALANINE AMINOTRANSFERASE 13 U/L (12-78); ALKALINE PHOSPHATASE 89 U/L (45-117); BILIRUBIN,TOTAL 0.4 mg/dL (0.2-1.0); CREATININE 1.14 mg/dL (0.7-1.3); TOTAL PROTEIN 7.4 g/dL (6.4-8.2); TROPONIN I < 0.015 ng/mL (0.000-0.045)
[2018-06-10 00:01] LABS: INTERNATIONAL NORMALIZED RATIO 1.2 (0.93-1.1); PROTHROMBIN TIME 12.3 Seconds (9.6-11.5)
[2018-06-10] MEDS ORDERED: DIGOXIN 0.25 MG TABLET PO ONE (00:30)
[2018-06-10] MEDS ORDERED: FUROSEMIDE 40 MG/4 ML IV ONE (00:30)
[2018-06-10] MEDS ORDERED: FUROSEMIDE 40 MG/4 ML ONE (00:31)
[2018-06-10 00:47] VITALS: BP 99/46
== END 2018-06-10 01:10 | disposition home or self-care (01) ==
LOC: ED 23:27
DX: I11.0 Hypertensive heart disease with heart failure (principal); I50.22 Chronic systolic (congestive) heart failure; I48.91 Unspecified atrial fibrillation; I25.2 Old myocardial infarction; J44.9 Chronic obstructive pulmonary disease, unspecified; Z72.9 Problem related to lifestyle, unspecified; Z88.0 Allergy status to penicillin
CPT/HCPCS: 36415; 71045; 80053; 80162; 83880; 84484; 85025; 85610; 85730; 93005; 96374; 99285; J1940